=== PATIENT | male | born 1940 | race Caucasian/White ===

== ENCOUNTER 2022-10-13 10:50 | Emergency (ER) | payer MEDICARE, SELFPAY ==
[2022-10-13 11:04] VITALS: BP 171/69; PULSE 65; RESP 18; TEMP 36.6; O2SAT 98; BMI 26.9
--- NOTE | 2022-10-13 11:15 | CT_ITS ---
The [address] [address] Patient Name: BOB FRY MRN: [id number] date: 1940 Sex: M Assigned Patient Location: ER Current Patient Location: ER Accession/Order Number: [id number] Exam Date: 10/13/2022 11:20 Report Date: 10/13/2022 11:41 At the request of: STEVEN SEO Procedure: CT head/brain wo con EXAM: CT head/brain wo con HISTORY: injury head and neck pain. History of fall. COMPARISON: CT head 11/07/2021. TECHNIQUE: Axial soft tissue and bone windows through the calvarium with coronal and sagittal reformats.CT dose reduction technique was used including Automated Exposure Control. Findings: No depressed or calvarial fracture. The paranasal sinuses and mastoid air cells are well aerated. No air-fluid levels. No extra-axial fluid collection. No intra-axial or extra-axial bleed. No mass effect or midline shift. Small scattered lacunar infarcts. Otherwise, the remainder of the villeda-white matter differentiation is preserved. There are supratentorial deep white matter low attenuation lesions which are nonspecific but commonly attributed to chronic small vessel ischemic disease. The brain parenchymal volume is reduced and there is ex vacuo dilatation of the ventricles. The basal cisterns are patent. The craniovertebral junction is unremarkable. CT/CT head/brain wo con IMPRESSION: 1. No depressed or calvarial fracture. 2. No acute intracranial bleed. 3. Senescent changes. Electronically authenticated by: MIGEL GRAHAM Date: 10/13/2022 11:41
--- NOTE | 2022-10-13 11:16 | CT_ITS ---
The [address] [address] Patient Name: BOB FRY MRN: [id number] date: 1940 Sex: M Assigned Patient Location: ER Current Patient Location: ER Accession/Order Number: [id number] Exam Date: 10/13/2022 11:20 Report Date: 10/13/2022 11:50 At the request of: STEVEN SEO Procedure: CT cervical spine wo con PROCEDURE: CT cervical spine wo con COMPARISON: None. HISTORY: injury TECHNIQUE: Axial, Coronal, and Sagittal CT images obtained without IV contrast. Dose reduction techniques were achieved by using automated exposure control and/or adjustment of mA and/or kV according to patient size and/or use of iterative reconstruction technique. FINDINGS: PARASPINAL AREA: Normal with no visible mass. DISCS: Fusion C3-C6 BONES: 2 mm retrolisthesis of C3 in relation to C2-C4. Partial loss of lordosis. Anterior fusion C3-C6 with no mechanical failure. Moderate degenerative spondylosis and facet osteoarthropathy OTHER: Negative. CT/CT cervical spine wo con IMPRESSION: No acute abnormality Electronically authenticated by: DENNY MCCOY Date: 10/13/2022 11:50
--- NOTE | 2022-10-13 11:19 | ECG_ITS ---
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
--- NOTE | 2022-10-13 12:30 | XR_ITS ---
The [address] [address] Patient Name: BOB FRY MRN: [id number] date: 1940 Sex: M Assigned Patient Location: ER Current Patient Location: ER Accession/Order Number: [id number] Exam Date: 10/13/2022 12:58 Report Date: 10/13/2022 13:25 At the request of: STEVEN SEO Procedure: XR chest 2V EXAM: XR chest 2V HISTORY: sob COMPARISON: None. TECHNIQUE: PA and lateral views of the chest. FINDINGS: The cardiomediastinal silhouette is normal. No focal consolidation is identified. There is no pneumothorax. No pleural effusion is noted. The osseous structures are intact. XR/XR chest 2V IMPRESSION: No acute cardiopulmonary process. Electronically authenticated by: CRUZ GARNETT Date: 10/13/2022 13:25
[2022-10-13] MEDS: 0.9 % SODIUM CHLORIDE 1,000 ML 1000 ML IV (12:44)
--- NOTE | 2022-10-13 12:51 | ED.GENADUL1 ---
HPI - General Adult General Chief complaint: Head Injury Stated complaint: FELL/HIT HEAD/HAS DEMENTIA Time Seen by Provider: 10/13/22 11:59 Source: family Mode of arrival: walk-in Limitations: no limitations History of Present Illness HPI narrative: Patient is a 82-year-old male who is presenting to the Emergency Room with chief complaint of 2 near syncopal episodes, falling down, hitting his head on the 2nd time. Patient was a home with his . Patient is on Plavix. Patient states that he does intermittently fall or lose his balance. For unknown reason, patient hit his head on the 2nd time that he fell. Patient has no headache. Patient has stiff shoulders, no neck pain. He has no chest pain, shortness of breath, nausea, vomiting, or any acute complaints. Patient is here with his . Patient does fall frequently or lose his balance intermittently at home for no reason. He did not have a mechanical fall today. No other acute complaints. No strokelike signs or symptoms. . All systems are negative except as noted/marked. All systems reviewed and otherwise negative. . Nurses note and vital signs reviewed and patient is not hypoxic. General: The patient appears well and in no apparent distress. Patient is resting comfortably on cart. Patient is not toxic, lethargic, or listless Skin: Warm, dry, no pallor noted. There is no rash noted. No petechiae, purpura. Head: Normocephalic, atraumatic, The scalp hematoma, patient has no midline or paracervical tenderness to palpation. Full range of motion of cervical spinal no difficulty. Eye: Normal conjunctiva, no drainage, EOMI. PERRL Ears, Nose, Mouth, and Throat: oral mucosa is Slightly dry. Nares patent. Mouth without vesicles. Cardiovascular: Regular Rate and Rhythm, no murmur, gallop, rub Respiratory: Patient is in no distress, no accessory muscle use, lungs are clear to auscultation, no wheezing, rales or rhonchi Back: non-tender, no CVA tenderness bilaterally to percussion. No CT LS midline pain. GI: soft, no tenderness to palpation, no masses appreciated. No rebound, guarding, or rigidity noted. No flank pain bilateral, No distention Musculoskeletal: Patient has full range of motion of all of the extremities, no motor, sensory, or focal neurological deficits Neurological: A&O x3, normal speech;NIH 0 Psychiatric: Cooperative Related Data Home Medications Medication Instructions Recorded Confirmed atorvastatin 80 mg tablet 80 mg PO QDAY 10/13/22 10/13/22 donepezil 10 mg tablet 10 mg PO QDAY 10/13/22 10/13/22 insulin glargine 100 unit/mL (3 1 unit subcut QID 10/13/22 10/13/22 mL) subcutaneous pen (Lantus Solostar U-100 Insulin) lisinopril 10 mg tablet 10 mg PO QDAY 10/13/22 10/13/22 metformin 500 mg tablet,extended 500 mg PO QDAY 10/13/22 10/13/22 release 24 hr mirtazapine 15 mg tablet 15 mg PO QDAY 10/13/22 10/13/22 omeprazole 40 mg capsule,delayed 40 mg PO QDAY 10/13/22 10/13/22 release ranolazine 500 mg tablet,extended 500 mg PO Q12H 10/13/22 10/13/22 release,12 hr Allergies Allergy/AdvReac Type Severity Reaction Status Date / Time No Known Drug Allergies Allergy Verified 10/13/22 11:01 [facility] Social History Smoking status: Current every day smoker Exam Constitutional Vital Signs, click to edit/add: Last Vital Signs Temp 97.8 F 10/13/22 11:04 Pulse 65 10/13/22 11:04 Resp 18 10/13/22 11:04 BP 171/69 H 10/13/22 11:04 Pulse Ox 98 10/13/22 11:04 O2 Del Method Room Air 10/13/22 11:04 Course Vital Signs Vital signs: Vital Signs Temperature 97.8 F 10/13/22 11:04 Pulse Rate 65 10/13/22 11:04 Respiratory Rate 18 10/13/22 11:04 Blood Pressure 171/69 H 10/13/22 11:04 Pulse Oximetry 98 10/13/22 11:04 Oxygen Delivery Method Room Air 10/13/22 11:04 Temperature 97.8 F 10/13/22 11:04 Pulse Rate 65 10/13/22 11:04 Respiratory Rate 18 10/13/22 11:04 Blood Pressure 171/69 H 10/13/22 11:04 Pulse Oximetry 98 10/13/22 11:04 Oxygen Delivery Method Room Air 10/13/22 11:04 Medical Decision Making MDM Narrative Medical decision making narrative: Patient was given 1 L of IV fluid. Patient chest x-ray, EKG, lab work shows no acute findings. Patient had a CT of the brain and cervical spine that showed no acute findings well. Please see the official reports. Patient will follow-up with PCP as needed. Lab Data Lab results reviewed: Yes I reviewed the patient's lab results Labs: Lab Results 10/13/22 Range/Units 12:48 WBC 10.8 (4.0-11.0) 10^3/uL RBC 4.22 L (4.70-6.10) 10^6/uL Hgb 12.8 L (14.0-18.0) g/dL Hct 38.1 L (42.0-54.0) % MCV 90.3 (80.0-94.0) fL MCH 30.3 (25.9-34.0) pg MCHC 33.6 (29.9-35.2) g/dL RDW 13.6 (11.0-15.0) % Plt Count 233 (150-450) 10^3/uL MPV 10.9 (9.5-13.5) fL Neut % (Auto) 78.6 H (43.0-75.0) % Lymph % (Auto) 11.0 L (20.5-60.0) % [place] % (Auto) 6.8 (1.7-12.0) % Eos % (Auto) 2.9 (0.9-7.0) % Baso % (Auto) 0.3 (0.2-2.0) % Neut # (Auto) 8.5 H (1.4-6.5) 10^3/uL Lymph # (Auto) 1.2 (1.2-3.8) 10^3/uL [place] # (Auto) 0.7 (0.3-0.8) 10^3/uL Eos # (Auto) 0.3 (0.0-0.7) 10^3/uL Baso # (Auto) 0.0 (0.0-0.1) 10^3/uL Abs Immat Gran (auto) 0.04 H (0.00-0.03) 10^3/uL Imm/Tot Granulo (auto) 0.4 (0.0-0.5) % Sodium 138 (136-145) mmol/L Potassium 4.3 (3.5-5.1) mmol/L Chloride 104 (98-107) mmol/L Carbon Dioxide 24.0 (21.0-32.0) mmol/L Anion Gap 14.3 BUN 20.0 H (7.0-18.0) mg/dL Creatinine 1.29 (0.70-1.30) mg/dL Est GFR ( Amer) >60 (>=60) Est GFR (Non-Af Amer) 53 L (>=60) BUN/Creatinine Ratio 15.5 Glucose 259 H (74-106) mg/dL Calcium 8.8 (8.5-10.1) mg/dL Troponin I High Sens 10.5 (4.0-76.1) pg/mL ECG Data Attestation: I personally reviewed and interpreted this ECG as follows: Interpretation: EKG interpretation. Normal sinus rhythm at 66 beats a minute. Left axis deviation. No acute ST elevation, no acute ectopy. QTC of 413. Discharge Plan Discharge Chief Complaint: Head Injury Clinical Impression: CHI (closed head injury), Near syncope Patient Disposition: Home, Self-Care Prescriptions / Home Meds: No Action atorvastatin 80 mg tablet 80 mg PO QDAY donepezil 10 mg tablet 10 mg PO QDAY insulin glargine [Lantus Solostar U-100 Insulin] 100 unit/mL (3 mL) insulin pen 1 unit SUBCUT QID lisinopril 10 mg tablet 10 mg PO QDAY metformin 500 mg tablet extended release 24 hr 500 mg PO QDAY mirtazapine 15 mg tablet 15 mg PO QDAY omeprazole 40 mg capsule,delayed release(DR/EC) 40 mg PO QDAY ranolazine 500 mg tablet extended release 12 hr 500 mg PO Q12H Instructions: Head Injury (ED), Near Syncope (ED) Stand Alone Forms: Portal Instructions Referrals: CECY CLARKE [Primary Care Provider] - 1 week Discharge Date/Time: 10/13/22 14:27
[2022-10-13 12:57] LABS: Basophils Percent Auto 0.3 % (0.2-2.0); Eosinophils Absolute Auto 0.3 10^3/uL (0.0-0.7); Eosinophils Percent Auto 2.9 % (0.9-7.0); Hematocrit 38.1 % (42.0-54.0); Hemoglobin 12.8 g/dL (14.0-18.0); Immature Granulocytes Abs Auto 0.04 10^3/uL (0.00-0.03); Immature Granulocytes Pct Auto 0.4 % (0.0-0.5); Lymphocytes Absolute Auto 1.2 10^3/uL (1.2-3.8); Mean Corpuscular HGB Conc 33.6 g/dL (29.9-35.2); Mean Corpuscular Hemoglobin 30.3 pg (25.9-34.0); Mean Corpuscular Volume 90.3 fL (80.0-94.0); Mean Platelet Volume 10.9 fL (9.5-13.5); Monocytes Absolute Auto 0.7 10^3/uL (0.3-0.8); Monocytes Percent Auto 6.8 % (1.7-12.0); Neutrophils Absolute Auto 8.5 10^3/uL (1.4-6.5); Neutrophils Percent Auto 78.6 % (43.0-75.0); Platelet Count 233 10^3/uL (150-450); Red Blood Count 4.22 10^6/uL (4.70-6.10); Red Cell Distribution Width 13.6 % (11.0-15.0); White Blood Count 10.8 10^3/uL (4.0-11.0)
[2022-10-13 13:14] LABS: Anion Gap 14.3; BUN Creatinine Ratio 15.5; Calcium 8.8 mg/dL (8.5-10.1); Chloride 104 mmol/L (98-107); Estimated GFR (African America >60 (>=60); Estimated GFR (Non-African Ame 53 (>=60); Glucose 259 mg/dL (74-106); Potassium 4.3 mmol/L (3.5-5.1); Sodium 138 mmol/L (136-145); Troponin I High Sensitivity 10.5 pg/mL (4.0-76.1)
[2022-10-13 17:04] LABS: Bilirubin Urine NEGATIVE (NEGATIVE); Blood Urine NEGATIVE (NEGATIVE); Clarity Urine CLEAR (CLEAR); Color Urine LT. YELLOW (YELLOW); Glucose Urine UA 100 mg/dL (NEGATIVE); Ketones Urine NEGATIVE (NEGATIVE); Leukocyte Esterase Urine NEGATIVE (NEGATIVE); Nitrite Urine NEGATIVE (NEGATIVE); Protein Urine NEGATIVE (NEG/TRACE); Urobilinogen Urine 0.2 EU/dL (0.2-1.0)
[2022-10-13 17:07] LABS: Urine Microscopic Indicated ALREADY ORDERED
[2022-10-13 17:18] LABS: Bacteria Urine NONE SEEN #/HPF (NONE SEEN); Cast Seen? NONE SEEN #/LPF (NONE SEEN); Crystals Seen? None Seen #/HPF (None Seen); Mucus Urine NONE SEEN (NONE SEEN); RBC Urine 0-2 #/HPF (0-2); Squamous Epithelial Cell Urine NONE SEEN #/LPF (NONE/RARE); Urine Culture Indicated ALREADY ORDERED; WBC Urine NONE SEEN #/HPF (NONE SEEN)
--- NOTE | 2022-10-17 12:51 | PC.NURSE ---
10/17/22 1251 pt being tx in er today with atb dr chun reviewed c+s of urine. S Albert MANZO
--- NOTE | 2022-10-20 10:07 | PC.NURSE ---
10/20/22 1007 c+s from urine on 10/13/22 pt pcp called and message left unable to contact pt or phone numbers no answer disconnected or unable to leave message. dr chun ordered for keflex to stop and start levaquin 750 mg po daily times 7 days. operation supervisor Gianna MANZO made aware of unable to contact pt Gianna attempted no contact. message left by this pattern chart writer to dr russell office.
== END 2022-10-13 14:27 | disposition home or self-care (01) ==
PROVIDERS: Emergency Provider Emergency Medicine; PCP Family Medicine
DX: S09.8XXA Other specified injuries of head, initial encounter (principal); R55 Syncope and collapse; Z79.02 Long term (current) use of antithrombotics/antiplatelets; Z79.899 Other long term (current) drug therapy; Z79.4 Long term (current) use of insulin; Z79.84 Long term (current) use of oral hypoglycemic drugs; F17.210 Nicotine dependence, cigarettes, uncomplicated; W19.XXXA Unspecified fall, initial encounter
CPT/HCPCS: 36415; 70450; 71046; 72125; 80048; 81001; 81003; 84484; 85025; 87086; 87150; 87186; 93005; 99285

== ENCOUNTER 2022-10-17 11:35 | Emergency (ER) | payer MEDICARE, SELFPAY ==
[2022-10-17] VITALS (15 sets, daily range): BP systolic 163–201; BP diastolic 67–94; PULSE 73–88; RESP 11–32; TEMP 36.6; O2SAT 98–100; BMI 26.6
--- NOTE | 2022-10-17 11:40 | ECG_ITS ---
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
--- NOTE | 2022-10-17 12:13 | XR_ITS ---
The [address] [address] Patient Name: BOB FRY MRN: [id number] date: 1940 Sex: M Assigned Patient Location: ER Current Patient Location: ER Accession/Order Number: [id number] Exam Date: 10/17/2022 12:50 Report Date: 10/17/2022 13:11 At the request of: STEVEN SEO Procedure: XR acute abdomen series EXAMINATION: XR acute abdomen series HISTORY: abd pain COMPARISON: No relevant comparison available. FINDINGS: LUNGS: No infiltrate, pneumothorax, or pleural effusion. MEDIASTINUM: No abnormal widening. Prior sternotomy. BOWEL GAS PATTERN: Non-obstructed. No abnormal dilation or suspicious fluid levels. FREE AIR: None. Air beneath left hemidiaphragm is within stomach. CALCIFICATIONS: None significant. BONES: Posterior mechanical fusion L1-L5. Posterior decompression of L3 and L4. OTHER: Negative. XR/XR acute abdomen series IMPRESSION: 1. No acute cardiopulmonary process. 2. No acute abdominal findings. Moderate amount of stool within distal colon. Electronically authenticated by: BLANCA PUCKETT Date: 10/17/2022 13:11
--- NOTE | 2022-10-17 12:16 | ED_ITS ---
HPI - General Adult General Chief complaint: Chest Pain Stated complaint: CHEST PAIN Time Seen by Provider: 10/17/22 11:41 Source: patient Mode of arrival: ambulance History of Present Illness HPI narrative: Patient is a 82-year-old male who is presenting to the Emergency Room with chief complaint of one episode of vomiting, and midepigastric pain after he was eating eggs at a restaurant. Patient was already seen and evaluated this morning at [facility] Room very early this morning around 4:00 this morning. patient presented this morning with sharp central chest pain, stating it started last night. He had one nitroglycerin in the ambulance, he had aspirin. Patient had normal EKG, blood pressure is slightly elevated, patient had lab work that showed no acute abnormality. Chest x-ray was within normal limits. Patient had a d-dimer that was elevated, but with age adjustment was normal. patient is presenting by ambulance for midepigastric pain. Patient said he vomited once. Patient stated that he noticed black stool today, does not have a history of black stool or gastrointestinal bleed. Patient takes no blood thinners. Patient states his pain is midsternal, midepigastric. Similar to what it was earlier today. Patient does not feel lightheaded or dizzy. Patient states she has mild diffuse abdominal pain. No constipation. Patient stated he change his adult diaper prior to arrival, he did have a bowel movement that he did notice black stool. Patient has no history of gastrointestinal bleed. No other acute complaints. . All systems are negative except as noted/marked. All systems reviewed and otherwise negative. . Nurses note and vital signs reviewed and patient is not hypoxic. General: The patient appears well and in no apparent distress. Patient is resting comfortably on cart. Patient is not toxic, lethargic, or listless Skin: Warm, dry, no pallor noted. There is no rash noted. No petechiae, purpura. Head: Normocephalic, atraumatic Eye: Normal conjunctiva, no drainage, EOMI. PERRL Ears, Nose, Mouth, and Throat: oral mucosa is slightly dry. Nares patent. poor dentition, no acute signs of infection. Cardiovascular: Regular Rate and Rhythm, no murmur, gallop, rub Respiratory: Patient is in no distress, no accessory muscle use, lungs are clear to auscultation, no wheezing, rales or rhonchi Back: non-tender, no CVA tenderness bilaterally to percussion. No CT LS midline pain GI: soft, no tenderness to palpation, no masses appreciated. No rebound, guarding, or rigidity noted. No flank pain bilateral, No distention. rectal exam: Agnes MANZO was at bedside the entire time, Dark brown stool, Hemoccult was sent. Musculoskeletal: Patient has full range of motion of all of the extremities, no motor, sensory, or focal neurological deficits Neurological: A&O x3, normal speech Psychiatric: Cooperative Related Data Home Medications Medication Instructions Recorded Confirmed atorvastatin 80 mg tablet 80 mg PO QDAY 10/13/22 10/13/22 donepezil 10 mg tablet 10 mg PO QDAY 10/13/22 10/13/22 insulin glargine 100 unit/mL (3 1 unit subcut QID 10/13/22 10/13/22 mL) subcutaneous pen (Lantus Solostar U-100 Insulin) lisinopril 10 mg tablet 10 mg PO QDAY 10/13/22 10/13/22 metformin 500 mg tablet,extended 500 mg PO QDAY 10/13/22 10/13/22 release 24 hr mirtazapine 15 mg tablet 15 mg PO QDAY 10/13/22 10/13/22 omeprazole 40 mg capsule,delayed 40 mg PO QDAY 10/13/22 10/13/22 release ranolazine 500 mg tablet,extended 500 mg PO Q12H 10/13/22 10/13/22 release,12 hr Previous Rx's Medication Instructions Recorded cephalexin 500 mg capsule 500 mg PO Q12H 7 days #14 caps 10/17/22 ondansetron 4 mg disintegrating 4 mg PO Q4H PRN nausea and 10/17/22 tablet vomiting 3 days #6 tabs Allergies Allergy/AdvReac Type Severity Reaction Status Date / Time No Known Drug Allergies Allergy Verified 10/13/22 11:01 PFSH PFS Social History Smoking status: Current every day smoker Exam Constitutional Vital Signs, click to edit/add: Last Vital Signs Temp 97.8 F 10/17/22 11:37 Pulse 79 10/17/22 13:53 Resp 17 10/17/22 13:53 BP 166/67 H 10/17/22 13:53 Pulse Ox 99 10/17/22 13:53 O2 Del Method Room Air 10/17/22 11:37 Course Vital Signs Vital signs: Vital Signs Temperature 97.8 F 10/17/22 11:37 Pulse Rate 85 10/17/22 11:37 Respiratory Rate 20 10/17/22 11:37 Blood Pressure 188/88 H 10/17/22 11:37 Pulse Oximetry 98 10/17/22 11:37 Oxygen Delivery Method Room Air 10/17/22 11:37 Temperature 97.8 F 10/17/22 11:37 Pulse Rate 79 10/17/22 13:53 Respiratory Rate 17 10/17/22 13:53 Blood Pressure 166/67 H 10/17/22 13:53 Pulse Oximetry 99 10/17/22 13:53 Oxygen Delivery Method Room Air 10/17/22 11:37 Medical Decision Making MDM Narrative Medical decision making narrative: patient's lab work showed minimal elevation of white blood cells, lactic acid was elevated as well. Patient was given additional IV fluids. Patient had mild midepigastric tenderness palpation initially, and no reproducible parasternal tenderness palpation. Patient EKG, troponin were negative. Patient felt better after Pepcid and IV fluids were given. Patient does take omeprazole daily. Patient has never had EGD, and is been a long, long time since he had a colonoscopy. Patient was educated bedside and on discharge papers about checking his stool every bowel movement to make sure he is not having black stools daily. Patient mentioned that he did notice black stool yesterday and today. Patient was told this could be an upper gastrointestinal bleed. Patient will continue taking antacid medication daily, check stool daily, follow-up with PCP in Dr. Barr was referred for additional outpatient testing or scopes if needed. Patient was very thankful for help, asymptomatic at discharge. Reexamination of abdomen at discharge is a soft, nontender, no guarding, rebound, rigidity. No flank pain. No midepigastric tenderness palpation. No peritoneal signs Lab Data Lab results reviewed: Yes I reviewed the patient's lab results Labs: Lab Results 10/17/22 10/17/22 Range/Units 12:05 12:30 WBC 13.2 H (4.0-11.0) 10^3/uL RBC 4.12 L (4.70-6.10) 10^6/uL Hgb 12.3 L (14.0-18.0) g/dL Hct 36.7 L (42.0-54.0) % MCV 89.1 (80.0-94.0) fL MCH 29.9 (25.9-34.0) pg MCHC 33.5 (29.9-35.2) g/dL RDW 13.2 (11.0-15.0) % Plt Count 291 (150-450) 10^3/uL MPV 10.7 (9.5-13.5) fL Neut % (Auto) 87.6 H (43.0-75.0) % Lymph % (Auto) 6.4 L (20.5-60.0) % [place] % (Auto) 4.9 (1.7-12.0) % Eos % (Auto) 0.5 L (0.9-7.0) % Baso % (Auto) 0.2 (0.2-2.0) % Neut # (Auto) 11.6 H (1.4-6.5) 10^3/uL Lymph # (Auto) 0.9 L (1.2-3.8) 10^3/uL [place] # (Auto) 0.7 (0.3-0.8) 10^3/uL Eos # (Auto) 0.1 (0.0-0.7) 10^3/uL Baso # (Auto) 0.0 (0.0-0.1) 10^3/uL Abs Immat Gran (auto) 0.05 H (0.00-0.03) 10^3/uL Imm/Tot Granulo (auto) 0.4 (0.0-0.5) % Sodium 134 L (136-145) mmol/L Potassium 4.2 (3.5-5.1) mmol/L Chloride 97 L (98-107) mmol/L Carbon Dioxide 27.8 (21.0-32.0) mmol/L Anion Gap 13.4 BUN 29.0 H (7.0-18.0) mg/dL Creatinine 1.21 (0.70-1.30) mg/dL Est GFR ( Amer) >60 (>=60) Est GFR (Non-Af Amer) 57 L (>=60) BUN/Creatinine Ratio 24.0 Glucose 373 H (74-106) mg/dL Lactate 2.5 H* (0.4-2.0) mmol/L Calcium 8.8 (8.5-10.1) mg/dL Total Bilirubin 0.7 (0.2-1.0) mg/dL AST 20 (15-37) U/L ALT 22 (16-63) U/L Alkaline Phosphatase 82 (46-116) U/L Troponin I High Sens 20.6 (4.0-76.1) pg/mL Total Protein 6.9 (6.4-8.2) g/dL Albumin 3.7 (3.4-5.0) g/dL Globulin 3.2 g/dL Albumin/Globulin Ratio 1.2 Lipase 92.0 (73.0-393.0) U/L Stool Occult Blood Negative ECG Data Attestation: I personally reviewed and interpreted this ECG as follows: Interpretation: EKG interpretation. Normal sinus rhythm 86 beats a minute. Left axis deviation.no acute ST elevation, no acute ectopy. QTC of 405. Discharge Plan Discharge Chief Complaint: Chest Pain Clinical Impression: Gastritis, Acute UTI, Nausea & vomiting, Dehydration Patient Disposition: Home, Self-Care Condition: Good Prescriptions / Home Meds: New ondansetron 4 mg tablet,disintegrating 4 mg PO Q4H PRN (Reason: nausea and vomiting) 3 Days Qty: 6 0RF cephalexin 500 mg capsule 500 mg PO Q12H 7 Days Qty: 14 0RF No Action atorvastatin 80 mg tablet 80 mg PO QDAY donepezil 10 mg tablet 10 mg PO QDAY insulin glargine [Lantus Solostar U-100 Insulin] 100 unit/mL (3 mL) insulin pen 1 unit SUBCUT QID lisinopril 10 mg tablet 10 mg PO QDAY metformin 500 mg tablet extended release 24 hr 500 mg PO QDAY mirtazapine 15 mg tablet 15 mg PO QDAY omeprazole 40 mg capsule,delayed release(DR/EC) 40 mg PO QDAY ranolazine 500 mg tablet extended release 12 hr 500 mg PO Q12H Instructions: Gastritis (ED), Dehydration (ED), Urinary Tract Infection in Men (ED), Acute Nausea and Vomiting (ED) Additional Instructions: Make sure that you're taking omeprazole present all tablet daily. Dr. Barr has been referred to perform EGD or colonoscopy if needed. Start looking at your daily bowel movements and stool to see of its black color every time as discussed at bedside. Stand Alone Forms: Portal Instructions Referrals: Damian Alfredo MD [Physician] - 1 week CECY CLARKE [Primary Care Provider] - 1 week
[2022-10-17] MEDS: ONDANSETRON PF 4 MG/2 ML VIAL IV (12:32)
[2022-10-17] MEDS: FAMOTIDINE/PF 20 MG/2 ML VIAL IV (12:32)
[2022-10-17] MEDS: 0.9 % SODIUM CHLORIDE 1,000 ML 1000 ML IV (12:36)
[2022-10-17] MEDS: lidocaine HCL 15 ML, MAG HYDROX/ALUMINUM HYD/SIMETH 30 ML, HYOSCYAMINE SULFATE 0.25 MG PO (12:36)
[2022-10-17 12:56] LABS: Basophils Percent Auto 0.2 % (0.2-2.0); Eosinophils Absolute Auto 0.1 10^3/uL (0.0-0.7); Eosinophils Percent Auto 0.5 % (0.9-7.0); Hematocrit 36.7 % (42.0-54.0); Hemoglobin 12.3 g/dL (14.0-18.0); Immature Granulocytes Abs Auto 0.05 10^3/uL (0.00-0.03); Immature Granulocytes Pct Auto 0.4 % (0.0-0.5); Lymphocytes Absolute Auto 0.9 10^3/uL (1.2-3.8); Lymphocytes Percent Auto 6.4 % (20.5-60.0); Mean Corpuscular HGB Conc 33.5 g/dL (29.9-35.2); Mean Corpuscular Hemoglobin 29.9 pg (25.9-34.0); Mean Corpuscular Volume 89.1 fL (80.0-94.0); Mean Platelet Volume 10.7 fL (9.5-13.5); Monocytes Absolute Auto 0.7 10^3/uL (0.3-0.8); Monocytes Percent Auto 4.9 % (1.7-12.0); Neutrophils Absolute Auto 11.6 10^3/uL (1.4-6.5); Neutrophils Percent Auto 87.6 % (43.0-75.0); Platelet Count 291 10^3/uL (150-450); Red Blood Count 4.12 10^6/uL (4.70-6.10); Red Cell Distribution Width 13.2 % (11.0-15.0); White Blood Count 13.2 10^3/uL (4.0-11.0)
[2022-10-17] MEDS: CEFTRIAXONE 1,000 MG in 0.9 % SODIUM CHLORIDE 50 ML 100 MG IV (13:04)
[2022-10-17 13:15] LABS: Alanine Aminotransferase 22 U/L (16-63); Albumin Globulin Ratio 1.2; Albumin Level 3.7 g/dL (3.4-5.0); Alkaline Phosphatase 82 U/L (46-116); Anion Gap 13.4; Aspartate Amino Transferase 20 U/L (15-37); Bilirubin Total 0.7 mg/dL (0.2-1.0); Calcium 8.8 mg/dL (8.5-10.1); Carbon Dioxide 27.8 mmol/L (21.0-32.0); Chloride 97 mmol/L (98-107); Estimated GFR (African America >60 (>=60); Estimated GFR (Non-African Ame 57 (>=60); Globulin 3.2 g/dL; Glucose 373 mg/dL (74-106); Potassium 4.2 mmol/L (3.5-5.1); Sodium 134 mmol/L (136-145); Total Protein 6.9 g/dL (6.4-8.2); Troponin I High Sensitivity 20.6 pg/mL (4.0-76.1)
[2022-10-17 13:26] LABS: Lactate/Lactic Acid 2.5 mmol/L (0.4-2.0)
[2022-10-17] MEDS: LISINOPRIL 10 MG TABLET PO (13:33)
[2022-10-17 14:03] LABS: Occult Blood Negative
== END 2022-10-17 14:15 | disposition home or self-care (01) ==
PROVIDERS: Emergency Provider Emergency Medicine; PCP Family Medicine
DX: N39.0 Urinary tract infection, site not specified (principal); R11.2 Nausea with vomiting, unspecified; K29.70 Gastritis, unspecified, without bleeding; E86.0 Dehydration; R19.5 Other fecal abnormalities; F17.210 Nicotine dependence, cigarettes, uncomplicated; Z79.899 Other long term (current) drug therapy; Z79.84 Long term (current) use of oral hypoglycemic drugs; Z79.4 Long term (current) use of insulin
CPT/HCPCS: 36415; 74022; 80053; 83605; 83690; 84484; 85025; 93005; 96374; 96375; 99285; G0328

== ENCOUNTER 2022-10-19 16:26 | Emergency (ER) | payer MEDICARE, SELFPAY ==
[2022-10-19 16:28] VITALS: BP 126/56; PULSE 77; RESP 18; TEMP 36.8; O2SAT 98; BMI 24.2
--- NOTE | 2022-10-19 16:28 | ED.FALL1 ---
HPI - Fall General Chief Complaint: Fall Stated Complaint: FALL Time Seen by Provider: 10/19/22 16:28 History of Present Illness HPI Narrative: Patient presents to emergency department via EMS with a complaint of a fall. Patient states he fell yesterday. Today he has right leg over the distal femur pain and neck soreness. Patient states he did not hit his head with the fall. He walked to the ambulance unassisted with a cane. Patient has a history of frequent falls. He denies any nausea, vomiting. He has not taking anything at home for the pain. He denies any paresthesias, or weakness. He states was a mechanical fall denies any syncope. Does not have any other complaints. Related Data Home Medications Medication Instructions Recorded Confirmed atorvastatin 80 mg tablet 80 mg PO QDAY 10/13/22 10/13/22 donepezil 10 mg tablet 10 mg PO QDAY 10/13/22 10/13/22 insulin glargine 100 unit/mL (3 1 unit subcut QID 10/13/22 10/13/22 mL) subcutaneous pen (Lantus Solostar U-100 Insulin) lisinopril 10 mg tablet 10 mg PO QDAY 10/13/22 10/13/22 metformin 500 mg tablet,extended 500 mg PO QDAY 10/13/22 10/13/22 release 24 hr mirtazapine 15 mg tablet 15 mg PO QDAY 10/13/22 10/13/22 omeprazole 40 mg capsule,delayed 40 mg PO QDAY 10/13/22 10/13/22 release ranolazine 500 mg tablet,extended 500 mg PO Q12H 10/13/22 10/13/22 release,12 hr Previous Rx's Medication Instructions Recorded cephalexin 500 mg capsule 500 mg PO Q12H 7 days #14 caps 10/17/22 ondansetron 4 mg disintegrating 4 mg PO Q4H PRN nausea and 10/17/22 tablet vomiting 3 days #6 tabs Allergies Allergy/AdvReac Type Severity Reaction Status Date / Time No Known Drug Allergies Allergy Verified 10/13/22 11:01 Review of Systems ROS Status of ROS 10 or more systems reviewed and unremarkable except as noted in history and below PFSH PFSH Social History Smoking status: Current every day smoker Exam Narrative Exam Narrative: Nurses notes and vital signs reviewed and patient is not hypoxic. General: Nontoxic, Elderly, frail, chronically ill and in no apparent distress. Skin: Warm, dry, no pallor noted. No Rash Head: Normocephalic, atraumatic. Neck: Supple, Is supple patient to the left lateral paraspinals C3-C6. Eye: Pupils are equal, round and EOMI. No scleral icterus. Ears, Nose, Mouth, and Throat: TM clear, no posterior oropharynx erythema or nasal mucosal hypertrophy, uvula is mid-line Oral mucosa is moist Cardiovascular: Regular Rate and Rhythm without murmur, gallop or rub. Respiratory: No accessory muscle use or respiratory distress. Lungs are clear to auscultation, no wheezing, rales or rhonchi Chest Wall: no tenderness Back: No midline thoracic or lumbar vertebral tenderness. No CVA tenderness Musculoskeletal: Tenderness to palpation to the left distal femur anteriorly. There are no step-offs, no ecchymosis, no abrasions, no signs of trauma, infection. normal ROM, no calf or popliteal tenderness, no lower extremity edema/swelling GI: Abdomen is soft, non-distended. Normal bowel sounds. No masses appreciated. No tenderness to palpation. No rebound, guarding, or rigidity noted. Neurological: A&O x4. No cranial nerve dysfunction observed. No truncal ataxia. Moves all extremities. Sensation intact. Psychiatric: Cooperative and interactive. Normal mood and affect. Constitutional Vital Signs, click to edit/add: Last Vital Signs Temp 98 F 10/19/22 18:49 Pulse 64 10/19/22 18:49 Resp 14 10/19/22 18:49 BP 128/60 10/19/22 18:49 Pulse Ox 97 10/19/22 18:49 O2 Del Method Room Air 10/19/22 18:49 Course Vital Signs Vital signs: Vital Signs Temperature 98.2 F 10/19/22 16:28 Pulse Rate 77 10/19/22 16:28 Respiratory Rate 18 10/19/22 16:28 Blood Pressure 126/56 10/19/22 16:28 Pulse Oximetry 98 10/19/22 16:28 Oxygen Delivery Method Room Air 10/19/22 16:28 Temperature 98 F 10/19/22 18:49 Pulse Rate 64 10/19/22 18:49 Respiratory Rate 14 10/19/22 18:49 Blood Pressure 128/60 10/19/22 18:49 Pulse Oximetry 97 07/27/23 18:49 Oxygen Delivery Method Room Air 10/19/22 18:49 MDM - Fall MDM Narrative Medical decision making narrative: Femur x-ray and CT of the C-spine were done and are unremarkable. Patient was given analgesics in the emergency department. Patient requested food was not having any problems. At this time the patient is without objective evidence of an acute process requiring hospitalization or inpatient management. The patient has remained hemodynamically stable. No additional indication for emergent studies at this time. I answered all questions. Discussed discharge instructions including standard anticipatory guidance and what should prompt a return to the emergency department, including if they get worse are not getting better or develops any new or concerning symptoms. I've given them specific time frame in which to follow-up, and who to follow-up with. The patient demonstrates understanding. Patient is nontoxic and stable for discharge with outpatient follow-up. This note was created with the assistance of a speech recognition program. Although the intention is to generate documents that actually reflects the content of the visit, no guarantees can be provided that every mistake has been identified and corrected by editing. Discharge Plan Discharge Chief Complaint: Fall Clinical Impression: Neck arthralgia, Leg pain, right Patient Disposition: Home, Self-Care Time of Disposition Decision: 18:11 Condition: Good Mode of Transportation: Private Vehicle Prescriptions / Home Meds: No Action atorvastatin 80 mg tablet 80 mg PO QDAY donepezil 10 mg tablet 10 mg PO QDAY insulin glargine [Lantus Solostar U-100 Insulin] 100 unit/mL (3 mL) insulin pen 1 unit SUBCUT QID lisinopril 10 mg tablet 10 mg PO QDAY metformin 500 mg tablet extended release 24 hr 500 mg PO QDAY mirtazapine 15 mg tablet 15 mg PO QDAY omeprazole 40 mg capsule,delayed release(DR/EC) 40 mg PO QDAY ranolazine 500 mg tablet extended release 12 hr 500 mg PO Q12H ondansetron 4 mg tablet,disintegrating 4 mg PO Q4H PRN (Reason: nausea and vomiting) 3 Days Qty: 6 0RF cephalexin 500 mg capsule 500 mg PO Q12H 7 Days Qty: 14 0RF Instructions: Fall Prevention for Older Adults (ED), Leg Pain (ED), Neck Pain (ED) Stand Alone Forms: Portal Instructions Referrals: CECY CLARKE [Primary Care Provider] - 1 week Discharge Date/Time: 10/19/22 19:05
--- NOTE | 2022-10-19 16:41 | XR_ITS ---
The [address] [address] Patient Name: BOB FRY MRN: [id number] date: 1940 Sex: M Assigned Patient Location: ED.MAIN Current Patient Location: ER Accession/Order Number: [id number] Exam Date: 10/19/2022 17:15 Report Date: 10/19/2022 17:39 At the request of: PHIL GOMEZ Procedure: XR femur RT 2V EXAM: XR femur RT 2V HISTORY: Pain following fall COMPARISON: None. TECHNIQUE: 4 views FINDINGS: No osseous lesion, fracture, dislocation or subluxation. The right hip joints and sacroiliac joints are unremarkable for patient's age. The right knee is normal. No visualized effusion. No visualized soft tissue edema. Atherosclerosis of the vascular structures. XR/XR femur RT 2V IMPRESSION: No visualized abnormality. Electronically authenticated by: DENNY MORELOS Date: 10/19/2022 17:39
--- NOTE | 2022-10-19 16:44 | CT_ITS ---
[address] [address] Patient Name: BOB FRY MRN: [id number] date: 1940 Sex: M Assigned Patient Location: ED.MAIN Current Patient Location: ED.MAIN Accession/Order Number: [id number] Exam Date: 10/19/2022 16:58 Report Date: 10/19/2022 17:59 At the request of: PHIL GOMEZ Procedure: CT cervical spine wo con EXAM: CT cervical spine wo con HISTORY: Fall COMPARISON: Cervical spine CT 10/13/2022 TECHNIQUE: Axial CT imaging is performed through the cervical spine. Sagittal and coronal reformatted/reconstructed sequencing was additionally performed. FINDINGS: IMPRESSION: In comparison with prior cervical spine CT performed on 10/13/2022 there is no visualized acute abnormality Electronically authenticated by: DENNY MORELOS Date: 10/19/2022 17:59
[2022-10-19] MEDS: ACETAMINOPHEN 500 MG TABLET 1000 MG PO (16:50)
[2022-10-19 17:25] VITALS: BP 118/48; PULSE 65; RESP 14; TEMP 36.4; O2SAT 98
[2022-10-19 18:49] VITALS: BP 128/60; PULSE 64; RESP 14; TEMP 36.6; O2SAT 97
== END 2022-10-19 19:05 | disposition home or self-care (01) ==
PROVIDERS: Emergency Provider Emergency Medicine; PCP Family Medicine
DX: M79.604 Pain in right leg (principal); M54.2 Cervicalgia; W19.XXXA Unspecified fall, initial encounter; Z79.899 Other long term (current) drug therapy; Z79.4 Long term (current) use of insulin; F17.210 Nicotine dependence, cigarettes, uncomplicated
CPT/HCPCS: 72125; 73552; 99284

== ENCOUNTER 2022-10-30 15:07 | Emergency (ER) | payer MEDICARE, SELFPAY ==
[2022-10-30 15:09] VITALS: BP 174/62; PULSE 72; RESP 18; TEMP 36.6; O2SAT 98; BMI 29.3
--- NOTE | 2022-10-30 15:13 | ED_ITS ---
HPI - General Adult General Stated complaint: CONSTIPATION Time Seen by Provider: 10/30/22 15:08 Source: patient Mode of arrival: ambulance Limitations: no limitations History of Present Illness HPI narrative: 82-year-old male presents for not having a bowel movement. He doesn't know when his last one was. He is a poor historian. He has dementia. He was at home with his . He feels like there is stool in his rectum. Related Data Home Medications Medication Instructions Recorded Confirmed atorvastatin 80 mg tablet 80 mg PO QDAY 10/13/22 10/13/22 donepezil 10 mg tablet 10 mg PO QDAY 10/13/22 10/13/22 insulin glargine 100 unit/mL (3 1 unit subcut QID 10/13/22 10/13/22 mL) subcutaneous pen (Lantus Solostar U-100 Insulin) lisinopril 10 mg tablet 10 mg PO QDAY 10/13/22 10/13/22 metformin 500 mg tablet,extended 500 mg PO QDAY 10/13/22 10/13/22 release 24 hr mirtazapine 15 mg tablet 15 mg PO QDAY 10/13/22 10/13/22 omeprazole 40 mg capsule,delayed 40 mg PO QDAY 10/13/22 10/13/22 release ranolazine 500 mg tablet,extended 500 mg PO Q12H 10/13/22 10/13/22 release,12 hr Previous Rx's Medication Instructions Recorded cephalexin 500 mg capsule 500 mg PO Q12H 7 days #14 caps 10/17/22 ondansetron 4 mg disintegrating 4 mg PO Q4H PRN nausea and 10/17/22 tablet vomiting 3 days #6 tabs Allergies Allergy/AdvReac Type Severity Reaction Status Date / Time No Known Drug Allergies Allergy Verified 10/13/22 11:01 Review of Systems ROS Narrative not obtainable, dementia PFSH PFSH Social History Smoking status: Current every day smoker Exam Narrative Exam Narrative: Nurses note and vital signs reviewed and patient is not hypoxic. General: The patient appears well and in no apparent distress. Patient is resting comfortably on cart. Skin: Warm, dry, no pallor noted. There is no rash noted. Head: Normocephalic, atraumatic Eye: Normal conjunctiva, no drainage Ears, Nose, Mouth, and Throat: oral mucosa is moist. Nares patent. Cardiovascular: Regular Rate and Rhythm Respiratory: Patient is in no distress, no accessory muscle use, lungs are clear to auscultation, no wheezing, rales or rhonchi Back: non-tender GI: soft nontender and nondistended Musculoskeletal: The patient has no evidence of calf tenderness, no pitting edema, symmetrical pulses noted bilaterally Neurological: soft and nontender Psychiatric: Cooperative Constitutional Vital Signs, click to edit/add: Last Vital Signs Temp 97.8 F 10/30/22 15:09 Pulse 72 10/30/22 15:09 Resp 18 10/30/22 15:09 BP 174/62 H 10/30/22 15:09 Pulse Ox 98 10/30/22 15:09 O2 Del Method Room Air 10/30/22 15:09 Course Vital Signs Vital signs: Vital Signs Temperature 97.8 F 10/30/22 15:09 Pulse Rate 72 10/30/22 15:09 Respiratory Rate 18 10/30/22 15:09 Blood Pressure 174/62 H 10/30/22 15:09 Pulse Oximetry 98 10/30/22 15:09 Oxygen Delivery Method Room Air 10/30/22 15:09 Temperature 97.8 F 10/30/22 15:09 Pulse Rate 72 10/30/22 15:09 Respiratory Rate 18 10/30/22 15:09 Blood Pressure 174/62 H 10/30/22 15:09 Pulse Oximetry 98 10/30/22 15:09 Oxygen Delivery Method Room Air 10/30/22 15:09 Medical Decision Making [facility] Narrative Medical decision making narrative: the patient was disimpacted and given an enema and he is feeling much improved. He had a very large bowel movement. Differential Diagnosis Differential Diagnosis: constipation, bowel obstruction Discharge Plan Discharge Clinical Impression: Constipation Patient Disposition: Home, Self-Care Time of Disposition Decision: 15:33 Condition: Good Mode of Transportation: Private Vehicle Prescriptions / Home Meds: No Action atorvastatin 80 mg tablet 80 mg PO QDAY donepezil 10 mg tablet 10 mg PO QDAY insulin glargine [Lantus Solostar U-100 Insulin] 100 unit/mL (3 mL) insulin pen 1 unit SUBCUT QID lisinopril 10 mg tablet 10 mg PO QDAY metformin 500 mg tablet extended release 24 hr 500 mg PO QDAY mirtazapine 15 mg tablet 15 mg PO QDAY omeprazole 40 mg capsule,delayed release(DR/EC) 40 mg PO QDAY ranolazine 500 mg tablet extended release 12 hr 500 mg PO Q12H ondansetron 4 mg tablet,disintegrating 4 mg PO Q4H PRN (Reason: nausea and vomiting) 3 Days Qty: 6 0RF cephalexin 500 mg capsule 500 mg PO Q12H 7 Days Qty: 14 0RF Instructions: Constipation (ED) Stand Alone Forms: Portal Instructions Referrals: CECY CLARKE [Primary Care Provider] - 1 week
[2022-10-30 15:50] VITALS: BP 130/70; PULSE 76; RESP 14; O2SAT 95
== END 2022-10-30 16:11 | disposition home or self-care (01) ==
PROVIDERS: Emergency Provider Emergency Medicine; PCP Family Medicine
DX: K59.00 Constipation, unspecified (principal); F03.90 Unspecified dementia, unspecified severity, without behavioral disturbance, psychotic disturbance, mood disturbance, and anxiety; Z79.899 Other long term (current) drug therapy; Z79.4 Long term (current) use of insulin; F17.210 Nicotine dependence, cigarettes, uncomplicated
CPT/HCPCS: 99283

== ENCOUNTER 2022-11-02 19:06 | Emergency (ER) | payer MEDICARE, SELFPAY ==
[2022-11-02 19:13] VITALS: BP 133/60; PULSE 65; RESP 18; TEMP 36.6; O2SAT 99; BMI 23.5
--- NOTE | 2022-11-02 20:21 | CT_ITS ---
The [address] [address] Patient Name: BOB FRY MRN: [id number] date: 1940 Sex: M Assigned Patient Location: ER Current Patient Location: ER Accession/Order Number: [id number] Exam Date: 11/02/2022 20:27 Report Date: 11/02/2022 21:01 At the request of: CORY HERRING Procedure: CT head/brain wo con EXAM: CT head/brain wo con HISTORY: headache COMPARISON: CT brain 10/13/2022 TECHNIQUE: Axial CT scans through the head were obtained without IV contrast administration. Dose reduction techniques were achieved by using: automated exposure control and/or adjustment of mA and /or kV according to patient size and/or use of iterative reconstruction technique. FINDINGS: There is no evidence of acute intracranial hemorrhage or abnormal extra-axial fluid collection. No mass effect or midline shift is seen. There is no evidence of large acute territorial infarction. There is no hydrocephalus. There are a few tiny lacunar infarcts in bilateral basal ganglia Moderate enlargement of the ventricles and sulci, consistent with age appropriate cerebral atrophy. Patchy areas of low-attenuation are present in supratentorial white matter, likely represents chronic microvascular ischemia. There are severe atherosclerotic calcifications of anterior and posterior circulations. To the limit of CT, the posterior fossa appears unremarkable. No definite acute fracture is identified. Soft tissues are unremarkable. The visualized orbits show no abnormal mass. The visualized paranasal sinuses show no air-fluid level. Mastoid air cells are clear. CT/CT head/brain wo con IMPRESSION: No CT evidence of acute intracranial abnormality. If there is sufficient clinical concern for acute brain parenchymal pathology, consider MRI for further evaluation. 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 Chronic microvascular ischemia, atherosclerosis and involutional changes. Electronically authenticated by: FARIDEH TRINIDAD Date: 11/02/2022 21:01
--- NOTE | 2022-11-02 20:52 | PC.NURSE ---
pt states headache that goes from the back of his head to the front of his head and into bilat shoulders. states this has been going on for a couple of wks and pt was even at his PCP's office and did not report this headache. Pt alert and appropriate, call light in reach
[2022-11-02 20:56] LABS: Bilirubin Urine NEGATIVE (NEGATIVE); Blood Urine NEGATIVE (NEGATIVE); Clarity Urine CLEAR (CLEAR); Color Urine YELLOW (YELLOW); Glucose Urine UA NEGATIVE (NEGATIVE); Ketones Urine NEGATIVE (NEGATIVE); Leukocyte Esterase Urine NEGATIVE (NEGATIVE); Nitrite Urine NEGATIVE (NEGATIVE); Protein Urine TRACE mg/dL (NEG/TRACE); Urobilinogen Urine 0.2 EU/dL (0.2-1.0); pH Urine 5.5 (5.0-9.0)
[2022-11-02 20:57] LABS: Urine Microscopic Indicated NO
--- NOTE | 2022-11-02 21:29 | ED.GENADUL1 ---
HPI - General Adult General Chief complaint: Headache Stated complaint: HEADACHE Time Seen by Provider: 11/02/22 20:21 Source: patient Mode of arrival: walk-in History of Present Illness HPI narrative: patient presents complaining of pain in his neck radiating into his scalp and into his left arm. Ongoing for past 2 weeks. Also has pain turning his head to right or left. No extremity weakness or numbness. No dizziness and doesn't feel off balance when walking. His is also concerned he may have a UTI. Patient denies any urinary symptoms Onset (ago): week(s) Related Data Home Medications Medication Instructions Recorded Confirmed atorvastatin 80 mg tablet 80 mg PO QDAY 10/13/22 10/13/22 donepezil 10 mg tablet 10 mg PO QDAY 10/13/22 10/13/22 insulin glargine 100 unit/mL (3 1 unit subcut QID 10/13/22 10/13/22 mL) subcutaneous pen (Lantus Solostar U-100 Insulin) lisinopril 10 mg tablet 10 mg PO QDAY 10/13/22 10/13/22 metformin 500 mg tablet,extended 500 mg PO QDAY 10/13/22 10/13/22 release 24 hr mirtazapine 15 mg tablet 15 mg PO QDAY 10/13/22 10/13/22 omeprazole 40 mg capsule,delayed 40 mg PO QDAY 10/13/22 10/13/22 release ranolazine 500 mg tablet,extended 500 mg PO Q12H 10/13/22 10/13/22 release,12 hr Previous Rx's Medication Instructions Recorded cephalexin 500 mg capsule 500 mg PO Q12H 7 days #14 caps 10/17/22 ondansetron 4 mg disintegrating 4 mg PO Q4H PRN nausea and 10/17/22 tablet vomiting 3 days #6 tabs Allergies Allergy/AdvReac Type Severity Reaction Status Date / Time No Known Drug Allergies Allergy Verified 10/13/22 11:01 Review of Systems ROS Status of ROS 10 or more systems reviewed and unremarkable except as noted in history and below PFSH PFSH Social History Smoking status: Current every day smoker Exam Constitutional Vital Signs, click to edit/add: Last Vital Signs Temp 97.8 F 11/02/22 19:13 Pulse 65 11/02/22 19:13 Resp 18 11/02/22 19:13 BP 133/60 11/02/22 19:13 Pulse Ox 99 11/02/22 19:13 O2 Del Method Room Air 11/02/22 20:51 Common normals: no apparent distress, oriented x3, no limitations, healthy appearing and alert Eye Common normals: EOMs intact bilaterally and conjunctivae normal Neck & C-Spine Other: limited rotation of head to right or left Respiratory Common normals: normal respiratory effort, no retractions and no use of accessory muscles Cardio Common normals: regular rate, regular rhythm, S1 normal heart sound and S2 normal heart sound GI Common normals: Normal to inspection, nondistended, normoactive bowel sounds present, soft to palpation and non-tender Extremity Common normals: normal to inspection and full ROM Neuro Common normals: oriented x3, CN's II-XII intact bilaterally, moves all extremities, no focal motor deficits and no sensory deficits noted Psych Appearance: grossly normal Course Vital Signs Vital signs: Vital Signs Temperature 97.8 F 11/02/22 19:13 Pulse Rate 65 11/02/22 19:13 Respiratory Rate 18 11/02/22 19:13 Blood Pressure 133/60 11/02/22 19:13 Pulse Oximetry 99 11/02/22 19:13 Oxygen Delivery Method Room Air 11/02/22 19:13 Temperature 97.8 F 11/02/22 19:13 Pulse Rate 65 11/02/22 19:13 Respiratory Rate 18 11/02/22 19:13 Blood Pressure 133/60 11/02/22 19:13 Pulse Oximetry 99 11/02/22 19:13 Oxygen Delivery Method Room Air 11/02/22 20:51 Medical Decision Making [facility] Narrative Medical decision making narrative: patient presents with cervical cephalgia and cervical neuropathy as well as muscular discomfort of his neck when turning to the left or right. CT brain without acute finding. UA performed as his was worried about UTI due to past history of the same and the urine is clean. Patient informed of the diagnosis. Provided medication for pain and is advised to follow up with his family doctor next week for continued treatment Lab Data Labs: Lab Results 11/02/22 Range/Units 20:30 Urine Color Yellow (YELLOW) Urine Clarity Clear (CLEAR) Urine pH 5.5 (5.0-9.0) Ur Specific [place] 1.020 (1.005-1.025) Urine Protein Trace (NEG/TRACE) mg/dL Urine Glucose (UA) Negative (NEGATIVE) mg/dL Urine Ketones Negative (NEGATIVE) mg/dL Urine Occult Blood Negative (NEGATIVE) Urine Nitrite Negative (NEGATIVE) Urine Bilirubin Negative (NEGATIVE) Urine Urobilinogen 0.2 (0.2-1.0) EU/dL Ur Leukocyte Esterase Negative (NEGATIVE) Imaging Data CT scan - head: Attestation: I have reviewed the pertinent imaging results. Radiologist's impression: [email or web address]=#[email or web address]?file=#[email or web address] Find: Highlight all Match case Current View [email or web address]=#[email or web address]=[email or web address],-13,674 Page: of 2 Current View [email or web address]=[email or web address],-13,674 [place] [address] Patient Name: BOB FRY MRN: [id number] date: 1940 Sex: M Assigned Patient Location: ER Current Patient Location: Accession/Order Number: [id number] Exam Date: 11/02/2022 20:27 Report Date: 11/02/2022 21:01 At the request of: CORY HERRING Procedure: CT head/brain wo con EXAM: CT head/brain wo con HISTORY: headache COMPARISON: CT brain 10/13/2022 TECHNIQUE: Axial CT scans through the head were obtained without IV contrast administration. Dose reduction techniques were achieved by using: automated exposure control and/or adjustment of mA and /or kV according to patient size and/or use of iterative reconstruction technique. FINDINGS: There is no evidence of acute intracranial hemorrhage or abnormal extra-axial fluid collection. No mass effect or midline shift is seen. There is no evidence of large acute territorial infarction. There is no hydrocephalus. There are a few tiny lacunar infarcts in bilateral basal ganglia Moderate enlargement of the ventricles and sulci, consistent with age appropriate cerebral atrophy. Patchy areas of low-attenuation are present in supratentorial white matter, likely represents chronic microvascular ischemia. There are severe atherosclerotic calcifications of anterior and posterior circulations. To the limit of CT, the posterior fossa appears unremarkable. No definite acute fracture is identified. Soft tissues are unremarkable. The visualized orbits show no abnormal mass. The visualized paranasal sinuses show no air-fluid level. Mastoid air cells are clear. IMPRESSION: No CT evidence of acute intracranial abnormality. If there is sufficient clinical concern for acute brain parenchymal pathology, consider MRI for further evaluation. 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 Chronic microvascular ischemia, atherosclerosis and involutional changes. Electronically authenticated by: FARIDEH TRINIDAD Date: 11/02/2022 21:01 Discharge Plan Discharge Chief Complaint: Headache Clinical Impression: Headache, Cervical neuropathy Prescriptions / Home Meds: No Action atorvastatin 80 mg tablet 80 mg PO QDAY donepezil 10 mg tablet 10 mg PO QDAY insulin glargine [Lantus Solostar U-100 Insulin] 100 unit/mL (3 mL) insulin pen 1 unit SUBCUT QID lisinopril 10 mg tablet 10 mg PO QDAY metformin 500 mg tablet extended release 24 hr 500 mg PO QDAY mirtazapine 15 mg tablet 15 mg PO QDAY omeprazole 40 mg capsule,delayed release(DR/EC) 40 mg PO QDAY ranolazine 500 mg tablet extended release 12 hr 500 mg PO Q12H ondansetron 4 mg tablet,disintegrating 4 mg PO Q4H PRN (Reason: nausea and vomiting) 3 Days Qty: 6 0RF cephalexin 500 mg capsule 500 mg PO Q12H 7 Days Qty: 14 0RF Instructions: Acute Headache (ED), Neck Pain (ED) Additional Instructions: follow up with your doctor early next week Stand Alone Forms: Portal Instructions Referrals: CECY CLARKE [Primary Care Provider] - 1 week
[2022-11-02] MEDS: TRAMADOL HCL 50 MG TABLET 200 MG PO (22:05)
== END 2022-11-02 22:09 | disposition home or self-care (01) ==
PROVIDERS: Emergency Provider Internal Medicine; PCP Family Medicine
DX: G54.2 Cervical root disorders, not elsewhere classified (principal); R51.9 Headache, unspecified; F17.210 Nicotine dependence, cigarettes, uncomplicated; Z79.899 Other long term (current) drug therapy; Z79.4 Long term (current) use of insulin; Z87.440 Personal history of urinary (tract) infections
CPT/HCPCS: 70450; 81003; 99284

== ENCOUNTER 2022-12-29 06:36 | Emergency (ER) | payer MEDICARE, SELFPAY ==
[2022-12-29] VITALS (29 sets, daily range): BP systolic 149–239; BP diastolic 67–129; PULSE 73–90; RESP 13–23; TEMP 37; O2SAT 89–99; BMI 26.6
--- NOTE | 2022-12-29 06:45 | ECG_ITS ---
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
--- NOTE | 2022-12-29 06:45 | XR_ITS ---
The [address] [address] Patient Name: BOB FRY MRN: [id number] date: 1940 Sex: M Assigned Patient Location: ER Current Patient Location: ED.MAIN Accession/Order Number: [id number] Exam Date: 12/29/2022 06:50 Report Date: 12/29/2022 07:20 At the request of: NASH VIDALES Procedure: XR chest 1V EXAMINATION: XR chest 1V HISTORY: chest pain COMPARISON: No relevant comparison available. TECHNIQUE: AP portable FINDINGS: LUNGS: No significant pulmonary parenchymal abnormalities. VASCULATURE: No increased pulmonary vasculature. PLEURA: No pneumothorax, effusion, or pleural thickening. CARDIAC: No cardiomegaly or cardiac silhouette abnormality. MEDIASTINUM: No visible mass or adenopathy. Median sternotomy wires. BONES: No fracture or visible bone lesion. Cervical fusion hardware OTHER: Negative. XR/XR chest 1V IMPRESSION: No acute cardiopulmonary process Electronically authenticated by: DENNY MCCOY Date: 12/29/2022 07:20
--- NOTE | 2022-12-29 06:47 | PC.NURSE ---
Pt presents to ER for chest pain via EMS Per pt and EMS pt had chest pain on and off all day yesterday Pt states pain got worse in the night so he called EMS this morning Pt was given 324 of aspirin and one round of Nitro en route with an IV started On arrival pt complaining of pain in the center of his sternum Pt has large scar down down the center of his chest Pt states he has not had a heart attack or cardiac history
[2022-12-29 06:59] LABS: Basophils Percent Auto 0.3 % (0.2-2.0); Eosinophils Absolute Auto 0.1 10^3/uL (0.0-0.7); Eosinophils Percent Auto 1.2 % (0.9-7.0); Hematocrit 35.2 % (42.0-54.0); Hemoglobin 12.1 g/dL (14.0-18.0); Immature Granulocytes Abs Auto 0.03 10^3/uL (0.00-0.03); Immature Granulocytes Pct Auto 0.3 % (0.0-0.5); Lymphocytes Absolute Auto 1.1 10^3/uL (1.2-3.8); Lymphocytes Percent Auto 9.2 % (20.5-60.0); Mean Corpuscular HGB Conc 34.4 g/dL (29.9-35.2); Mean Corpuscular Hemoglobin 30.5 pg (25.9-34.0); Mean Corpuscular Volume 88.7 fL (80.0-94.0); Mean Platelet Volume 11.8 fL (9.5-13.5); Monocytes Absolute Auto 0.7 10^3/uL (0.3-0.8); Monocytes Percent Auto 6.1 % (1.7-12.0); Neutrophils Absolute Auto 9.7 10^3/uL (1.4-6.5); Neutrophils Percent Auto 82.9 % (43.0-75.0); Platelet Count 211 10^3/uL (150-450); Red Blood Count 3.97 10^6/uL (4.70-6.10); Red Cell Distribution Width 13.1 % (11.0-15.0); White Blood Count 11.7 10^3/uL (4.0-11.0)
--- NOTE | 2022-12-29 07:13 | ED.CHESTPAI1 ---
HPI - Chest Pain General Chief Complaint: Chest Pain Stated Complaint: CHEST PAIN Time Seen by Provider: 12/29/22 06:57 Source: patient Mode of arrival: ambulance Limitations: no limitations History of Present Illness HPI narrative: yesterday the patient developed pain in the left anterior chest. While he does not recall anything that might have caused the pain, he said that it hurts to press in that area and to take a deep breath. He denied any injury, fall or trauma. No fever or chills. No associated shortness of breath, nausea or vomiting. He came by EMS and was given 324mg aspirin and a single SL Nitro in route. He said that did not improve the chest pain. He denied prior CAD or cardiac cath or stenting. Related Data Home Medications Medication Instructions Recorded Confirmed atorvastatin 80 mg tablet 80 mg PO QDAY 10/13/22 10/13/22 donepezil 10 mg tablet 10 mg PO QDAY 10/13/22 10/13/22 insulin glargine 100 unit/mL (3 1 unit subcut QID 10/13/22 10/13/22 mL) subcutaneous pen (Lantus Solostar U-100 Insulin) lisinopril 10 mg tablet 10 mg PO QDAY 10/13/22 10/13/22 metformin 500 mg tablet,extended 500 mg PO QDAY 10/13/22 10/13/22 release 24 hr mirtazapine 15 mg tablet 15 mg PO QDAY 10/13/22 10/13/22 omeprazole 40 mg capsule,delayed 40 mg PO QDAY 10/13/22 10/13/22 release ranolazine 500 mg tablet,extended 500 mg PO Q12H 10/13/22 10/13/22 release,12 hr Previous Rx's Medication Instructions Recorded cephalexin 500 mg capsule 500 mg PO Q12H 7 days #14 caps 10/17/22 ondansetron 4 mg disintegrating 4 mg PO Q4H PRN nausea and 10/17/22 tablet vomiting 3 days #6 tabs Allergies Allergy/AdvReac Type Severity Reaction Status Date / Time No Known Drug Allergies Allergy Verified 10/13/22 11:01 [facility] Social History Smoking status: Current every day smoker Exam Narrative Exam Narrative: Nurses notes and vital signs reviewed and patient is not hypoxic. afebrile General: Well-appearing and in no apparent distress. Skin: Warm, dry, no pallor noted. No rash. Eye: Pupils are equal, round and EOMI. No scleral icterus. Cardiovascular: Regular Rate and Rhythm without murmur, gallop or rub. Respiratory: No accessory muscle use or respiratory distress. Lungs are clear to auscultation, no wheezing, rales or rhonchi Chest Wall: focal tenderness in the anterior left chest without crepitus or subcutaneous emphysema Back: No midline thoracic or lumbar vertebral tenderness. No CVA tenderness Musculoskeletal: normal ROM, no calf or popliteal tenderness, no lower extremity edema/swelling GI: Abdomen is soft, non-distended. Normal bowel sounds. No tenderness to palpation. No rebound, guarding, or rigidity noted. Neurological: A&O x4. No cranial nerve dysfunction observed. No truncal ataxia. Moves all extremities. Sensation intact. Psychiatric: Cooperative and interactive. Normal mood and affect. Constitutional Vital Signs, click to edit/add: Last Vital Signs Temp 98.6 F 12/29/22 06:33 Pulse 73 12/29/22 08:31 Resp 19 12/29/22 08:31 BP 149/79 H 12/29/22 08:31 Pulse Ox 97 12/29/22 08:31 O2 Del Method Room Air 12/29/22 06:33 Course Vital Signs Vital signs: Vital Signs Temperature 98.6 F 12/29/22 06:33 Pulse Rate 83 12/29/22 06:33 Respiratory Rate 18 12/29/22 06:33 Blood Pressure 167/88 H 12/29/22 06:33 Pulse Oximetry 97 12/29/22 06:33 Oxygen Delivery Method Room Air 12/29/22 06:33 Temperature 98.6 F 12/29/22 06:33 Pulse Rate 73 12/29/22 08:31 Respiratory Rate 19 12/29/22 08:31 Blood Pressure 149/79 H 12/29/22 08:31 Pulse Oximetry 97 12/29/22 08:31 Oxygen Delivery Method Room Air 12/29/22 06:33 MDM - Chest Pain MDM Narrative Medical decision making narrative: Patient was placed on desk monitor and EKG obtained. Blood drawn and sent for evaluation. CXR obtained. He was given IV Zofran to prevent nausea and IV Morphine for the pain. Glucose elevated at 519. He was given insulin to reduce his glucose and a liter of NS IVF. Repeat glucose @ 0843 was 440. Glucose 382 @ 0955. His chest pain resolved after he received IV Moprhine. Negative troponin x 2 sets. BNP elevated but CXR clear and no peripheral sign of heart failure. Patient discharged home with recommendation to continue to take his daily meds as prescribed. PCP follow up recommended. ED return if worse. Lab Data Attestation: I reviewed the patient's lab results. Labs: Lab Results 12/29/22 12/29/22 12/29/22 Range/Units 06:45 08:43 09:24 WBC 11.7 H (4.0-11.0) 10^3/uL RBC 3.97 L (4.70-6.10) 10^6/uL Hgb 12.1 L (14.0-18.0) g/dL Hct 35.2 L (42.0-54.0) % MCV 88.7 (80.0-94.0) fL MCH 30.5 (25.9-34.0) pg MCHC 34.4 (29.9-35.2) g/dL RDW 13.1 (11.0-15.0) % Plt Count 211 (150-450) 10^3/uL MPV 11.8 (9.5-13.5) fL Neut % (Auto) 82.9 H (43.0-75.0) % Lymph % (Auto) 9.2 L (20.5-60.0) % [place] % (Auto) 6.1 (1.7-12.0) % Eos % (Auto) 1.2 (0.9-7.0) % Baso % (Auto) 0.3 (0.2-2.0) % Neut # (Auto) 9.7 H (1.4-6.5) 10^3/uL Lymph # (Auto) 1.1 L (1.2-3.8) 10^3/uL [place] # (Auto) 0.7 (0.3-0.8) 10^3/uL Eos # (Auto) 0.1 (0.0-0.7) 10^3/uL Baso # (Auto) 0.0 (0.0-0.1) 10^3/uL Abs Immat Gran (auto) 0.03 (0.00-0.03) 10^3/uL Imm/Tot Granulo (auto) 0.3 (0.0-0.5) % Sodium 132 L (136-145) mmol/L Potassium 4.4 (3.5-5.1) mmol/L Chloride 96 L (98-107) mmol/L Carbon Dioxide 23.7 (21.0-32.0) mmol/L Anion Gap 16.7 BUN 33.0 H (7.0-18.0) mg/dL Creatinine 1.28 (0.70-1.30) mg/dL Est GFR ( Amer) >60 (>=60) Est GFR (Non-Af Amer) 54 L (>=60) BUN/Creatinine Ratio 25.8 Glucose 519 H* (74-106) mg/dL Calcium 9.6 (8.5-10.1) mg/dL Troponin I High Sens 25.2 31.3 (4.0-76.1) pg/mL NT-Pro-B Natriuret Pep 2253.0 H* (<=1800.0) pg/mL POC Glucose 440 H (74-106) mg/dL Imaging Data Chest x-ray: Radiologist's impression: Patient Name: BOB FRY MRN: [facility]:[id number] date: 1940 Sex: M Assigned Patient Location: ER Current Patient Location: ED.MAIN Accession/Order Number: [id number] Exam Date: 12/29/2022 06:50 Report Date: 12/29/2022 07:20 At the request of: NAHS VIDALES Procedure: XR chest 1V EXAMINATION: XR chest 1V HISTORY: chest pain COMPARISON: No relevant comparison available. TECHNIQUE: AP portable FINDINGS: LUNGS: No significant pulmonary parenchymal abnormalities. VASCULATURE: No increased pulmonary vasculature. PLEURA: No pneumothorax, effusion, or pleural thickening. CARDIAC: No cardiomegaly or cardiac silhouette abnormality. MEDIASTINUM: No visible mass or adenopathy. Median sternotomy wires. BONES: No fracture or visible bone lesion. Cervical fusion hardware OTHER: Negative. IMPRESSION: No acute cardiopulmonary process Electronically authenticated by: DENNY MCCOY Date: 12/29/2022 07:20 ECG Data Interpretation: EKG interpretation: Emergency Department physician interpretation. Normal sinus rhythm at 83bpm. Left axis, normal intervals and no ST segment elevation or depression. Discharge Plan Discharge Chief Complaint: Chest Pain Clinical Impression: Hyperglycemia due to diabetes mellitus, Acute chest wall pain Patient Disposition: Home, Self-Care Time of Disposition Decision: 09:56 Prescriptions / Home Meds: No Action atorvastatin 80 mg tablet 80 mg PO QDAY donepezil 10 mg tablet 10 mg PO QDAY insulin glargine [Lantus Solostar U-100 Insulin] 100 unit/mL (3 mL) insulin pen 1 unit SUBCUT QID lisinopril 10 mg tablet 10 mg PO QDAY metformin 500 mg tablet extended release 24 hr 500 mg PO QDAY mirtazapine 15 mg tablet 15 mg PO QDAY omeprazole 40 mg capsule,delayed release(DR/EC) 40 mg PO QDAY ranolazine 500 mg tablet extended release 12 hr 500 mg PO Q12H ondansetron 4 mg tablet,disintegrating 4 mg PO Q4H PRN (Reason: nausea and vomiting) 3 Days Qty: 6 0RF cephalexin 500 mg capsule 500 mg PO Q12H 7 Days Qty: 14 0RF Instructions: Diabetic Hyperglycemia (ED), Chest Wall Pain (ED) Stand Alone Forms: Portal Instructions Referrals: CECY CLARKE [Primary Care Provider] - 1 week
[2022-12-29 07:16] LABS: Anion Gap 16.7; BUN Creatinine Ratio 25.8; Calcium 9.6 mg/dL (8.5-10.1); Carbon Dioxide 23.7 mmol/L (21.0-32.0); Chloride 96 mmol/L (98-107); Estimated GFR (African America >60 (>=60); Estimated GFR (Non-African Ame 54 (>=60); Potassium 4.4 mmol/L (3.5-5.1); Sodium 132 mmol/L (136-145); Troponin I High Sensitivity 25.2 pg/mL (4.0-76.1)
[2022-12-29 07:20] LABS: Glucose 519 mg/dL (74-106)
[2022-12-29] MEDS: 0.9 % SODIUM CHLORIDE 1,000 ML 1000 ML IV (07:29)
[2022-12-29] MEDS: ONDANSETRON PF 4 MG/2 ML VIAL IV (07:30)
[2022-12-29] MEDS: INSULIN REGULAR 300 UNITS/3 ML 15 UNIT IV (07:31)
[2022-12-29] MEDS: MORPHINE SULFATE 4 MG/ML VIAL IV (07:32)
[2022-12-29 08:44] LABS: Glucometer 440 mg/dL (74-106)
[2022-12-29 09:48] LABS: Troponin I High Sensitivity 31.3 pg/mL (4.0-76.1)
[2022-12-29 10:00] LABS: Glucometer 382 mg/dL (74-106)
== END 2022-12-29 10:04 | disposition home or self-care (01) ==
PROVIDERS: Internal Medicine; Emergency Provider Emergency Medicine; PCP Family Medicine
DX: R07.89 Other chest pain (principal); E11.65 Type 2 diabetes mellitus with hyperglycemia; Z79.899 Other long term (current) drug therapy; Z79.4 Long term (current) use of insulin; Z79.84 Long term (current) use of oral hypoglycemic drugs; F17.210 Nicotine dependence, cigarettes, uncomplicated
CPT/HCPCS: 36415; 71045; 80048; 82948; 83880; 84484; 85025; 93005; 96374; 96375; 99285

== ENCOUNTER 2022-12-29 15:12 | Observation (INO) | payer MEDICARE, SELFPAY ==
[2022-12-29] VITALS (32 sets, daily range): BP systolic 150–249; BP diastolic 80–132; PULSE 75–100; RESP 13–27; TEMP 36.6–36.8; O2SAT 93–100; BMI 25.2; BMI 25.1
--- NOTE | 2022-12-29 15:23 | ECG_ITS ---
The [facility] Test Date: 2022-12-29 Pat Name: BOB FRY Department: Room: - Gender: Male [place]: : 1940 Requested By: Order Number: [id number] Reading MD: MIGUEL BIGGS Measurements Intervals [place] Rate: 93 P: 51 ME: 176 QRS: -65 QRSD: 106 T: 44 QT: 352 QTc: 403 Interpretive Statements 1100 Sinus rhythm 1570 with occasional ventricular premature complexes 7200 Abnormal left axis deviation 8003 Consistent with pulmonary disease 9150 abnormal ECG Compared to ECG 12/29/2022 06:34:11 No significant changes Electronically Signed On 12-31-2022 18:20:05 EDT by MIGUEL BIGGS
--- NOTE | 2022-12-29 15:28 | ED.CHESTPAI1 ---
HPI - Chest Pain General Chief Complaint: Chest Pain Stated Complaint: CHEST PAIN/ SORE THROAT Time Seen by Provider: 12/29/22 15:22 Source: patient Limitations: no limitations History of Present Illness HPI narrative: I saw and evaluated this patient this morning in this ED when was brought in by EMS for the same complaint - chest pain. He had two negative troponins and unremarkable chest XR. His pain did not change with aspirin and Nitro given by EMS in route but completely resolved with ED treatment. He now returns stating that he has return of the pain in his chest. No associated symptoms such as nausea, vomiting or shortness of breath. No cough, fever or chills. No GI or complaints. Related Data Home Medications Medication Instructions Recorded Confirmed atorvastatin 80 mg tablet 80 mg PO DAILY 10/13/22 12/29/22 donepezil 10 mg tablet 10 mg PO DAILY 10/13/22 12/29/22 insulin glargine 100 unit/mL (3 20 unit subcut QAM 10/13/22 12/29/22 mL) subcutaneous pen (Lantus Solostar U-100 Insulin) lisinopril 10 mg tablet 10 mg PO DAILY 10/13/22 12/29/22 metformin 500 mg tablet,extended 500 mg PO QDAY 10/13/22 12/29/22 release 24 hr omeprazole 40 mg capsule,delayed 40 mg PO BID 10/13/22 12/29/22 release ranolazine 500 mg tablet,extended 500 mg PO BID 10/13/22 12/29/22 release,12 hr insulin glargine 100 unit/mL (3 10 unit subcut QPM 12/29/22 12/29/22 mL) subcutaneous pen (Lantus Solostar U-100 Insulin) isosorbide mononitrate 30 mg 30 mg PO DAILY 12/29/22 12/29/22 tablet,extended release 24 hr mirtazapine 30 mg tablet (Remeron) 30 mg PO BEDTIME 12/29/22 12/29/22 Allergies Allergy/AdvReac Type Severity Reaction Status Date / Time No Known Drug Allergies Allergy Verified 10/13/22 11:01 [facility] Social History Smoking status: Former smoker Exam Narrative Exam Narrative: General: Well-appearing and in no apparent distress. Skin: Warm, dry, no pallor noted. No rash. Eye: Pupils are equal, round and EOMI. No scleral icterus. Cardiovascular: Regular Rate and Rhythm without murmur, gallop or rub. Respiratory: No accessory muscle use or respiratory distress. Lungs are clear to auscultation, no wheezing, rales or rhonchi Chest Wall: focal tenderness in the anterior left chest without crepitus or subcutaneous emphysema Back: No midline thoracic or lumbar vertebral tenderness. No CVA tenderness Musculoskeletal: normal ROM, no calf or popliteal tenderness, no lower extremity edema/swelling GI: Abdomen is soft, non-distended. Normal bowel sounds. No tenderness to palpation. No rebound, guarding, or rigidity noted. Neurological: A&O x4. No cranial nerve dysfunction observed. No truncal ataxia. Moves all extremities. Sensation intact. Psychiatric: Cooperative and interactive. Normal mood and affect. Constitutional Vital Signs, click to edit/add: Last Vital Signs Temp 98.2 F 12/29/22 15:18 Pulse 91 H 12/29/22 15:18 Resp 18 12/29/22 15:18 BP 170/80 H 12/29/22 15:18 Pulse Ox 98 12/29/22 15:18 Course Vital Signs Vital signs: Vital Signs Temperature 98.2 F 12/29/22 15:18 Pulse Rate 91 H 12/29/22 15:18 Respiratory Rate 18 12/29/22 15:18 Blood Pressure 170/80 H 12/29/22 15:18 Pulse Oximetry 98 12/29/22 15:18 Temperature 98.2 F 12/29/22 15:18 Pulse Rate 91 H 12/29/22 15:18 Respiratory Rate 18 12/29/22 15:18 Blood Pressure 170/80 H 12/29/22 15:18 Pulse Oximetry 98 12/29/22 15:18 MDM - Chest Pain MDM Narrative Medical decision making narrative: Patient was placed on cafeteria monitor and EKG obtained. Blood drawn and sent for evaluation. He already had CXR this morning and does not need another. .Troponin once again negative. Call placed to Dr Denson to discuss obs admission for recurrent chest pain. Dr Denson agrees to admit the patient to his service. Patient and spouse informed of recommendation to be admitted to TBS, SDU, OBS. Lab Data Attestation: I reviewed the patient's lab results. Labs: Lab Results 12/29/22 Range/Units 15:27 WBC 12.7 H (4.0-11.0) 10^3/uL RBC 4.08 L (4.70-6.10) 10^6/uL Hgb 12.4 L (14.0-18.0) g/dL Hct 36.6 L (42.0-54.0) % MCV 89.7 (80.0-94.0) fL MCH 30.4 (25.9-34.0) pg MCHC 33.9 (29.9-35.2) g/dL RDW 13.5 (11.0-15.0) % Plt Count 251 (150-450) 10^3/uL MPV 11.3 (9.5-13.5) fL Neut % (Auto) 75.9 H (43.0-75.0) % Lymph % (Auto) 15.8 L (20.5-60.0) % [place] % (Auto) 6.8 (1.7-12.0) % Eos % (Auto) 0.8 L (0.9-7.0) % Baso % (Auto) 0.3 (0.2-2.0) % Neut # (Auto) 9.7 H (1.4-6.5) 10^3/uL Lymph # (Auto) 2.0 (1.2-3.8) 10^3/uL [place] # (Auto) 0.9 H (0.3-0.8) 10^3/uL Eos # (Auto) 0.1 (0.0-0.7) 10^3/uL Baso # (Auto) 0.0 (0.0-0.1) 10^3/uL Abs Immat Gran (auto) 0.05 H (0.00-0.03) 10^3/uL Imm/Tot Granulo (auto) 0.4 (0.0-0.5) % Sodium 131 L (136-145) mmol/L Potassium 3.9 (3.5-5.1) mmol/L Chloride 98 (98-107) mmol/L Carbon Dioxide 23.2 (21.0-32.0) mmol/L Anion Gap 13.7 BUN 36.0 H (7.0-18.0) mg/dL Creatinine 1.40 H (0.70-1.30) mg/dL Est GFR ( Amer) 59 L (>=60) Est GFR (Non-Af Amer) 48 L (>=60) BUN/Creatinine Ratio 25.7 Glucose 426 H (74-106) mg/dL Calcium 9.2 (8.5-10.1) mg/dL Troponin I High Sens 25.5 (4.0-76.1) pg/mL ECG Data Interpretation: EKG interpretation: Emergency Department physician interpretation. Normal sinus rhythm at 93bpm. Left axis. no ST segment elevation or depression. Heart Score History: Moderatly Suspicious ECG: NS Repolarization Age: >65 years Risk Factors: >3 Risk Factors/ HX of CAD:2 Troponin: <Normal Limit Total Heart Score Recommendations & Risks:: 6 Discharge Plan Discharge Chief Complaint: Chest Pain Clinical Impression: Chest pain Patient Disposition: Admitted as Observation Time of Disposition Decision: 16:35 Prescriptions / Home Meds: No Action atorvastatin 80 mg tablet 80 mg PO DAILY donepezil 10 mg tablet 10 mg PO DAILY insulin glargine [Lantus Solostar U-100 Insulin] 100 unit/mL (3 mL) insulin pen 20 unit SUBCUT QAM lisinopril 10 mg tablet 10 mg PO DAILY metformin 500 mg tablet extended release 24 hr 500 mg PO QDAY omeprazole 40 mg capsule,delayed release(DR/EC) 40 mg PO BID ranolazine 500 mg tablet extended release 12 hr 500 mg PO BID insulin glargine [Lantus Solostar U-100 Insulin] 100 unit/mL (3 mL) insulin pen 10 unit subcut QPM mirtazapine [Remeron] 30 mg tablet 30 mg PO BEDTIME isosorbide mononitrate 30 mg tablet extended release 24 hr 30 mg PO DAILY Additional Instructions: dr denson, JOYCEU, obs Referrals: CECY CLARKE [Primary Care Provider] - 1 week
[2022-12-29 15:34] LABS: Basophils Percent Auto 0.3 % (0.2-2.0); Eosinophils Absolute Auto 0.1 10^3/uL (0.0-0.7); Eosinophils Percent Auto 0.8 % (0.9-7.0); Hematocrit 36.6 % (42.0-54.0); Hemoglobin 12.4 g/dL (14.0-18.0); Immature Granulocytes Abs Auto 0.05 10^3/uL (0.00-0.03); Immature Granulocytes Pct Auto 0.4 % (0.0-0.5); Lymphocytes Percent Auto 15.8 % (20.5-60.0); Mean Corpuscular HGB Conc 33.9 g/dL (29.9-35.2); Mean Corpuscular Hemoglobin 30.4 pg (25.9-34.0); Mean Corpuscular Volume 89.7 fL (80.0-94.0); Mean Platelet Volume 11.3 fL (9.5-13.5); Monocytes Absolute Auto 0.9 10^3/uL (0.3-0.8); Monocytes Percent Auto 6.8 % (1.7-12.0); Neutrophils Absolute Auto 9.7 10^3/uL (1.4-6.5); Neutrophils Percent Auto 75.9 % (43.0-75.0); Platelet Count 251 10^3/uL (150-450); Red Blood Count 4.08 10^6/uL (4.70-6.10); Red Cell Distribution Width 13.5 % (11.0-15.0); White Blood Count 12.7 10^3/uL (4.0-11.0)
[2022-12-29] MEDS: ONDANSETRON PF 4 MG/2 ML VIAL IV (15:46)
[2022-12-29] MEDS: MORPHINE SULFATE 2 MG/ML SYRINGE IV (15:46)
[2022-12-29 15:52] LABS: Anion Gap 13.7; BUN Creatinine Ratio 25.7; Calcium 9.2 mg/dL (8.5-10.1); Carbon Dioxide 23.2 mmol/L (21.0-32.0); Chloride 98 mmol/L (98-107); Estimated GFR (African America 59 (>=60); Estimated GFR (Non-African Ame 48 (>=60); Glucose 426 mg/dL (74-106); Potassium 3.9 mmol/L (3.5-5.1); Sodium 131 mmol/L (136-145); Troponin I High Sensitivity 25.5 pg/mL (4.0-76.1)
[2022-12-29] MEDS: ISOSORBIDE MONONITRATE 30 MG TAB.ER.24H PO (18:18)
[2022-12-29] MEDS: LISINOPRIL 10 MG TABLET PO (18:18)
[2022-12-29] MEDS: HYDRALAZINE HCL 20 MG/ML VIAL 10 MG IVP (18:18)
[2022-12-29] MEDS: ENOXAPARIN SODIUM 40 MG/0.4 ML SYRINGE SUBQ (18:27)
[2022-12-29 20:51] LABS: Glucometer 444 mg/dL (74-106)
[2022-12-29] MEDS: MIRTAZAPINE 15 MG TABLET 30 MG PO (21:15)
[2022-12-29] MEDS: OMEPRAZOLE 40 MG CAPSULE.DR PO (21:15)
[2022-12-29] MEDS: RANOLAZINE 500 MG TAB.ER.12H PO (21:15)
[2022-12-29] MEDS: INSULIN ASPART 300 UNIT/3 ML PEN SUBQ (21:16)
[2022-12-29] MEDS: INSULIN DETEMIR 300 UNIT/3 ML INSULN.PEN 10 UNIT SUBQ (21:16)
[2022-12-30] VITALS (11 sets, daily range): BP systolic 100–133; BP diastolic 48–78; PULSE 61–98; RESP 14–18; TEMP 36.4–36.6; O2SAT 94–98
[2022-12-30 04:55] LABS: Glucometer 318 mg/dL (74-106)
[2022-12-30 06:01] LABS: Basophils Percent Auto 0.3 % (0.2-2.0); Eosinophils Absolute Auto 0.1 10^3/uL (0.0-0.7); Eosinophils Percent Auto 0.5 % (0.9-7.0); Hematocrit 29.8 % (42.0-54.0); Hemoglobin 9.8 g/dL (14.0-18.0); Immature Granulocytes Abs Auto 0.03 10^3/uL (0.00-0.03); Immature Granulocytes Pct Auto 0.3 % (0.0-0.5); Lymphocytes Absolute Auto 1.7 10^3/uL (1.2-3.8); Lymphocytes Percent Auto 15.7 % (20.5-60.0); Mean Corpuscular HGB Conc 32.9 g/dL (29.9-35.2); Mean Corpuscular Hemoglobin 29.8 pg (25.9-34.0); Mean Corpuscular Volume 90.6 fL (80.0-94.0); Mean Platelet Volume 11.7 fL (9.5-13.5); Monocytes Absolute Auto 0.8 10^3/uL (0.3-0.8); Monocytes Percent Auto 7.3 % (1.7-12.0); Neutrophils Absolute Auto 8.3 10^3/uL (1.4-6.5); Neutrophils Percent Auto 75.9 % (43.0-75.0); Platelet Count 204 10^3/uL (150-450); Red Blood Count 3.29 10^6/uL (4.70-6.10); Red Cell Distribution Width 13.7 % (11.0-15.0)
[2022-12-30 06:47] LABS: Alanine Aminotransferase 24 U/L (16-63); Albumin Globulin Ratio 1.1; Alkaline Phosphatase 61 U/L (46-116); Anion Gap 11.8; Aspartate Amino Transferase 9 U/L (15-37); BUN Creatinine Ratio 28.8; Bilirubin Total 0.5 mg/dL (0.2-1.0); Calcium 8.7 mg/dL (8.5-10.1); Carbon Dioxide 24.2 mmol/L (21.0-32.0); Chloride 102 mmol/L (98-107); Estimated GFR (African America 53 (>=60); Estimated GFR (Non-African Ame 44 (>=60); Globulin 2.8 g/dL; Glucose 323 mg/dL (74-106); Sodium 134 mmol/L (136-145); Total Protein 5.8 g/dL (6.4-8.2)
[2022-12-30 08:02] LABS: Troponin I High Sensitivity 24.8 pg/mL (4.0-76.1)
[2022-12-30] MEDS: INSULIN ASPART 300 UNIT/3 ML PEN SUBQ (08:27)
[2022-12-30] MEDS: ISOSORBIDE MONONITRATE 30 MG TAB.ER.24H PO (08:28)
[2022-12-30] MEDS: INSULIN DETEMIR 300 UNIT/3 ML INSULN.PEN 20 UNIT SUBQ (08:29)
[2022-12-30] MEDS: OMEPRAZOLE 40 MG CAPSULE.DR PO (08:29)
[2022-12-30] MEDS: DONEPEZIL HCL 10 MG TABLET PO (08:29)
[2022-12-30] MEDS: RANOLAZINE 500 MG TAB.ER.12H PO (08:29)
[2022-12-30] MEDS: ATORVASTATIN CALCIUM 40 MG TABLET 80 MG PO (08:29)
--- NOTE | 2022-12-30 08:38 | PC.NURSE ---
Patient resting with eyes closed upon entry to room. Patient awoken and vital signs taken, patient agreeable and alert. Oriented to self and date of . Patient denies the need for toileting, and denies wanting to order breakfast. Patient requested further rest. Patient educated on medications and patient agreed to taking medication. Patient asked if any further needs and patient promptly denies any. Call light left in reach and patient educated to proper use of call light.
[2022-12-30 11:26] LABS: Glucometer 183 mg/dL (74-106)
--- NOTE | 2022-12-30 13:58 | P.HP_ITS ---
H&P: HPI History of Present Illness Chief complaint: CHEST pain Narrative: 82 y/o male to ER with chest pain. Pain off and on for several days. Developed increased pain in am and to ER. CE negative and glucose 519. Discharged home. Continued to have pain and worsened. Returned to ER and CE remains negative. Admitted for observation. Feels well since admission. No further pain in chest. No SOB or palpitations. Review of Systems ROS Constitutional Denies: fever, chills or night sweats Cardiovascular Reports: chest pain; Denies: palpitations, edema or lightheade dness Respiratory Denies: shortness of breath, cough or wheezing Gastrointestinal Denies: abdominal pain, nausea, vomiting or diarrhea Genitourinary Denies: painful urination PFSH [facility] Medical History (Updated 12/30/22 @ 09:44 by Hesham Zheng MD) Acute chest wall pain ?R07.89 - Other chest pain (ICD-10) Acute UTI ?N39.0 - Urinary tract infection, site not specified (ICD-10) Cervical neuropathy ?G54.2 - Cervical root disorders, not elsewhere classified (ICD-10) CHI (closed head injury) ?S09.90XA - Unspecified injury of head, initial encounter (ICD-10) Constipation ?K59.00 - Constipation, unspecified (ICD-10) Dehydration ?E86.0 - Dehydration (ICD-10) Diabetes ?E11.9 - Type 2 diabetes mellitus without complications (ICD-10) Gastritis ?K29.70 - Gastritis, unspecified, without bleeding (ICD-10) Headache ?R51.9 - Headache, unspecified (ICD-10) Leg pain, right ?M79.604 - Pain in right leg (ICD-10) Nausea & vomiting ?R11.2 - Nausea with vomiting, unspecified (ICD-10) Near syncope ?R55 - Syncope and collapse (ICD-10) Neck arthralgia ?M54.2 - Cervicalgia (ICD-10) Surgical History (Updated 12/29/22 @ 17:59 by Luz Elena Jackson) History of cholecystectomy ?Z90.49 - Acquired absence of other specified parts of digestive tract (ICD- 10) 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 (ICD-10) Social History Smoking status: Former smoker Meds Home Medications and Allergies Home Medications Medication Instructions Recorded Confirmed Type atorvastatin 80 mg tablet 80 mg PO DAILY 10/13/22 12/29/22 History donepezil 10 mg tablet 10 mg PO DAILY 10/13/22 12/29/22 History insulin glargine 100 unit/mL (3 20 unit subcut QAM 10/13/22 12/29/22 History mL) subcutaneous pen (Lantus Solostar U-100 Insulin) lisinopril 10 mg tablet 10 mg PO DAILY 10/13/22 12/29/22 History metformin 500 mg tablet,extended 500 mg PO QDAY 10/13/22 12/29/22 History release 24 hr omeprazole 40 mg capsule,delayed 40 mg PO BID 10/13/22 12/29/22 History release ranolazine 500 mg tablet,extended 500 mg PO BID 10/13/22 12/29/22 History release,12 hr insulin glargine 100 unit/mL (3 10 unit subcut QPM 12/29/22 12/29/22 History mL) subcutaneous pen (Lantus Solostar U-100 Insulin) isosorbide mononitrate 30 mg 30 mg PO DAILY 12/29/22 12/29/22 History tablet,extended release 24 hr mirtazapine 30 mg tablet (Remeron) 30 mg PO BEDTIME 12/29/22 12/29/22 History Allergies Allergy/AdvReac Type Severity Reaction Status Date / Time No Known Drug Allergies Allergy Verified 10/13/22 11:01 Exam Constitutional Vital Signs, click to edit/add: Last Vital Signs Temp 97.5 F L 12/30/22 05:32 Pulse 61 12/30/22 12:00 Resp 17 12/30/22 12:00 BP 107/48 L 12/30/22 08:30 Pulse Ox 95 12/30/22 12:05 O2 Del Method Room Air 12/30/22 12:05 Documenting provider has reviewed patient's vital signs: yes Common normals: no apparent distress, oriented x3 and alert HENMT Common normals: normocephalic Eye Common normals: PERRL and EOMs intact bilaterally Respiratory Common normals: normal respiratory effort and clear to auscultation bilaterally Cardio Common normals: regular rate, regular rhythm, no gallops, no clicks and no rub GI Common normals: Normal to inspection, nondistended, normoactive bowel sounds present and non-tender Extremity Common normals: no pedal edema Results Labs Labs: Short CBC 12/29/22 12/30/22 Range/Units 15:27 05:37 WBC 12.7 H 11.0 (4.0-11.0) 10^3/uL Hgb 12.4 L 9.8 L (14.0-18.0) g/dL Hct 36.6 L 29.8 L (42.0-54.0) % Plt Count 251 204 (150-450) 10^3/uL BMP 12/29/22 12/30/22 15:27 05:37 Sodium 131 L 134 L Potassium 3.9 4.0 Chloride 98 102 Carbon Dioxide 23.2 24.2 BUN 36.0 H 44.0 H Creatinine 1.40 H 1.53 H Glucose 426 H 323 H Calcium 9.2 8.7 Liver Function 12/30/22 Range/Units 05:37 Total Bilirubin 0.5 (0.2-1.0) mg/dL AST 9 L (15-37) U/L ALT 24 (16-63) U/L Alkaline Phosphatase 61 (46-116) U/L Albumin 3.0 L (3.4-5.0) g/dL ECG Attestation: ?I have reviewed the pertinent ECG results. Assessment and Plan Assessment and Plan (1) Chest pain: (2) Coronary artery disease: (3) Hyperglycemia due to diabetes mellitus: (4) Benign essential hypertension: (5) Alzheimer's dementia: (6) Dyslipidemia: Plan Patient not having ACS. EKG normal and CE negative. No further pain. Discharge home. Resume home medication without change. F/u with PCP in 1-2 weeks and may need outpatient stress test.
--- NOTE | 2023-01-02 15:02 | CM.DCFOLLOWU ---
2nd attempt- No answer
== END 2022-12-30 13:57 | disposition home or self-care (01) ==
LOC: ER 16:55 → ICU 17:35
PROVIDERS: Admitting Provider Family Medicine; Emergency Provider Emergency Medicine; PCP Family Medicine; Visit Provider Internal Medicine
DX: R07.9 Chest pain, unspecified (principal); I25.10 Atherosclerotic heart disease of native coronary artery without angina pectoris; E11.65 Type 2 diabetes mellitus with hyperglycemia; I10 Essential (primary) hypertension; E78.5 Hyperlipidemia, unspecified; G30.9 Alzheimer's disease, unspecified; F02.80 Dementia in other diseases classified elsewhere, unspecified severity, without behavioral disturbance, psychotic disturbance, mood disturbance, and anxiety; Z79.4 Long term (current) use of insulin; Z79.82 Long term (current) use of aspirin; Z79.899 Other long term (current) drug therapy; Z87.891 Personal history of nicotine dependence; Z95.1 Presence of aortocoronary bypass graft; Z90.49 Acquired absence of other specified parts of digestive tract; Z87.440 Personal history of urinary (tract) infections; R07.89 Other chest pain; Z79.84 Long term (current) use of oral hypoglycemic drugs
CPT/HCPCS: 36415; 71045; 80048; 80053; 82948; 83880; 84484; 85025; 93005; 94761; 96372; 96374; 96375; 99285; G0378

== ENCOUNTER 2023-01-19 15:30 | Emergency (ER) | payer MEDICARE, SELFPAY ==
[2023-01-19 15:26] VITALS: BP 151/63; PULSE 59; RESP 20; O2SAT 100; BMI 25.8
--- NOTE | 2023-01-19 15:35 | CT_ITS ---
The [address] [address] Patient Name: BOB FRY MRN: [id number] date: 1940 Sex: M Assigned Patient Location: ER Current Patient Location: [facility] Accession/Order Number: [id number] Exam Date: 01/19/2023 15:44 Report Date: 01/19/2023 16:21 At the request of: STEVEN SEO Procedure: CT head/brain wo con EXAM: CT head/brain wo con HISTORY: chi on thinners COMPARISON: CT brain 11/02/2022 TECHNIQUE: Axial CT scans through the head were obtained without IV contrast administration. Dose reduction techniques were achieved by using: automated exposure control and/or adjustment of mA and /or kV according to patient size and/or use of iterative reconstruction technique. FINDINGS: There is no evidence of acute intracranial hemorrhage or abnormal extra-axial fluid collection. No mass effect or midline shift is seen. There is no evidence of large acute territorial infarction. There is no hydrocephalus. There are small remote lacunar infarcts in bilateral caudate head and left caudate body. Moderate enlargement of the ventricles and sulci, consistent with age appropriate cerebral atrophy. Patchy areas of low-attenuation are present in supratentorial white matter, likely represents chronic microvascular ischemia. There are atherosclerotic calcifications of anterior and posterior circulations. To the limit of CT, the posterior fossa appears unremarkable. No definite acute fracture is identified. Soft tissues are unremarkable. The visualized orbits show no abnormal mass. The visualized paranasal sinuses show no air-fluid level. Mastoid air cells are clear. CT/CT head/brain wo con IMPRESSION: No CT evidence of acute intracranial abnormality, specifically no intracranial hemorrhage. 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 Chronic microvascular ischemia and involutional changes. Electronically authenticated by: FARIDEH WELSHU Date: 01/19/2023 16:21
--- NOTE | 2023-01-19 16:16 | ED.GENADUL1 ---
HPI - General Adult General Chief complaint: Skin/Abscess/Foreign Body Stated complaint: fall Time Seen by Provider: 01/19/23 15:36 Source: other Source information: EMS Mode of arrival: ambulance Limitations: no limitations History of Present Illness HPI narrative: Patient is a 82-year-old male who is presenting with a unwitnessed fall and closed head injury. Patient is currently staying at a nursing facility. Patient was found face down next to the bed. Patient arrived by [facility]. Patient is on blood thinners. Patient is alert and oriented ?3. Patient has no cervical collar in place when he arrived by EMS. This is a unwitnessed fall. Patient currently has no headache, neck pain. No chest pain or shortness of breath. Patient is a small skin tear to his left elbow. When patient arrived to room 7, I saw the patient while he was still on EMS gurney. Patient is alert and oriented ?3, patient clinically has no midline or paracervical tenderness palpation. Patient has full range of motion of cervical spinal no difficulty. Patient was recommended by myself to be placed in a cervical collar secondary to ATLS and trauma Lines. Patient refused cervical collar, stating he had no neck pain. Cervical collar was not placed per patient request. Patient says his tetanus shot is up-to-date. Patient has no other acute complaints at this time. . All systems are negative except as noted/marked. All systems reviewed and otherwise negative. . Nurses note and vital signs reviewed and patient is not hypoxic. General: The patient appears well and in no apparent distress. Patient is resting comfortably on cart. Patient is not toxic, lethargic, or listless Skin: Warm, dry, no pallor noted. There is no rash noted. No petechiae, purpura. Patient has a 2 cm jagged skin tear to his left elbow. This will be cleaned, benzoin and Steri-Strips will be placed. Head: Normocephalic, atraumatic, No cervical collar in place, please see HPI. Patient has no hematoma, abrasion, laceration. Full range of motion of cervical spinal no difficulty. Eye: Normal conjunctiva, no drainage, EOMI. PERRL Ears, Nose, Mouth, and Throat: oral mucosa is moist. Nares patent. Mouth without vesicles. Cardiovascular: Regular Rate and Rhythm, no murmur, gallop, rub Respiratory: Patient is in no distress, no accessory muscle use, lungs are clear to auscultation, no wheezing, rales or rhonchi Back: non-tender, no CVA tenderness bilaterally to percussion. No CT LS midline pain GI: soft, no tenderness to palpation, no masses appreciated. No rebound, guarding, or rigidity noted. No flank pain bilateral, No distention Musculoskeletal: Patient has full range of motion of all of the extremities, no motor, sensory, or focal neurological deficits Neurological: A&O x3, normal speech Psychiatric: Cooperative Related Data Home Medications Medication Instructions Recorded Confirmed atorvastatin 80 mg tablet 80 mg PO DAILY 10/13/22 12/29/22 donepezil 10 mg tablet 10 mg PO DAILY 10/13/22 12/29/22 insulin glargine 100 unit/mL (3 20 unit subcut QAM 10/13/22 12/29/22 mL) subcutaneous pen (Lantus Solostar U-100 Insulin) lisinopril 10 mg tablet 10 mg PO DAILY 10/13/22 12/29/22 metformin 500 mg tablet,extended 500 mg PO QDAY 10/13/22 12/29/22 release 24 hr omeprazole 40 mg capsule,delayed 40 mg PO BID 10/13/22 12/29/22 release ranolazine 500 mg tablet,extended 500 mg PO BID 10/13/22 12/29/22 release,12 hr insulin glargine 100 unit/mL (3 10 unit subcut QPM 12/29/22 12/29/22 mL) subcutaneous pen (Lantus Solostar U-100 Insulin) isosorbide mononitrate 30 mg 30 mg PO DAILY 12/29/22 12/29/22 tablet,extended release 24 hr mirtazapine 30 mg tablet (Remeron) 30 mg PO BEDTIME 12/29/22 12/29/22 Allergies Allergy/AdvReac Type Severity Reaction Status Date / Time No Known Drug Allergies Allergy Verified 10/13/22 11:01 [facility] Medical History (Updated 01/19/23 @ 16:43 by Abiodun Gasca MD) Acute chest wall pain ?R07.89 - Other chest pain (ICD-10) Acute UTI ?N39.0 - Urinary tract infection, site not specified (ICD-10) Cervical neuropathy ?G54.2 - Cervical root disorders, not elsewhere classified (ICD-10) CHI (closed head injury) ?S09.90XA - Unspecified injury of head, initial encounter (ICD-10) Constipation ?K59.00 - Constipation, unspecified (ICD-10) Dehydration ?E86.0 - Dehydration (ICD-10) Diabetes ?E11.9 - Type 2 diabetes mellitus without complications (ICD-10) Gastritis ?K29.70 - Gastritis, unspecified, without bleeding (ICD-10) Headache ?R51.9 - Headache, unspecified (ICD-10) Leg pain, right ?M79.604 - Pain in right leg (ICD-10) Nausea & vomiting ?R11.2 - Nausea with vomiting, unspecified (ICD-10) Near syncope ?R55 - Syncope and collapse (ICD-10) Neck arthralgia ?M54.2 - Cervicalgia (ICD-10) Surgical History (Updated 12/29/22 @ 17:59 by Luz Elena Jackson) History of cholecystectomy ?Z90.49 - Acquired absence of other specified parts of digestive tract (ICD-10) 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 (ICD-10) Social History Smoking status: Former smoker Exam Constitutional Vital Signs, click to edit/add: Last Vital Signs Pulse 59 L 01/19/23 15:26 Resp 20 01/19/23 15:26 BP 151/63 H 01/19/23 15:26 Pulse Ox 100 01/19/23 15:26 O2 Del Method Nasal Cannula 01/19/23 15:26 O2 Flow Rate 2 01/19/23 15:26 Course Vital Signs Vital signs: Vital Signs Pulse Rate 59 L 01/19/23 15:26 Respiratory Rate 20 01/19/23 15:26 Blood Pressure 151/63 H 01/19/23 15:26 Pulse Oximetry 100 01/19/23 15:26 Oxygen Delivery Method Nasal Cannula 01/19/23 15:26 Oxygen Delivery Flow Rate 2 01/19/23 15:26 Pulse Rate 59 L 01/19/23 15:26 Respiratory Rate 20 01/19/23 15:26 Blood Pressure 151/63 H 01/19/23 15:26 Pulse Oximetry 100 01/19/23 15:26 Oxygen Delivery Method Nasal Cannula 01/19/23 15:26 Oxygen Delivery Flow Rate 2 01/19/23 15:26 Medical Decision Making MDM Narrative Medical decision making narrative: CT of the brain shows no acute findings. Patient had no other acute injury. Patient did not want to wear cervical collar when he arrived. Patient had a skin tear that was dressed by nursing staff. Education on skin tears/Steri-Strips was done at bedside and on discharge paperwork. Patient looks well. has been at bedside. Discharge Plan Discharge Chief Complaint: Skin/Abscess/Foreign Body Clinical Impression: Head injury, Skin tear of left elbow without complication Patient Disposition: Home, Self-Care Condition: Fair Prescriptions / Home Meds: No Action atorvastatin 80 mg tablet 80 mg PO DAILY donepezil 10 mg tablet 10 mg PO DAILY insulin glargine [Lantus Solostar U-100 Insulin] 100 unit/mL (3 mL) insulin pen 20 unit SUBCUT QAM lisinopril 10 mg tablet 10 mg PO DAILY metformin 500 mg tablet extended release 24 hr 500 mg PO QDAY omeprazole 40 mg capsule,delayed release(DR/EC) 40 mg PO BID ranolazine 500 mg tablet extended release 12 hr 500 mg PO BID insulin glargine [Lantus Solostar U-100 Insulin] 100 unit/mL (3 mL) insulin pen 10 unit subcut QPM mirtazapine [Remeron] 30 mg tablet 30 mg PO BEDTIME isosorbide mononitrate 30 mg tablet extended release 24 hr 30 mg PO DAILY Instructions: Head Injury (ED) Additional Instructions: Use Tylenol if needed for headache. Head injury instructions were discussed at bedside and on discharge paper. Follow-up with PCP of residential. Stand Alone Forms: Portal Instructions Referrals: DAVIDE LAO DO [Primary Care Provider] - 1 week
[2023-01-19 18:03] VITALS: BP 167/82; PULSE 67; RESP 20; O2SAT 98
== END 2023-01-19 18:07 | disposition home or self-care (01) ==
PROVIDERS: Emergency Provider Emergency Medicine; PCP Family Medicine
DX: S51.012A Laceration without foreign body of left elbow, initial encounter (principal); S09.8XXA Other specified injuries of head, initial encounter; W19.XXXA Unspecified fall, initial encounter; E11.9 Type 2 diabetes mellitus without complications; Z90.49 Acquired absence of other specified parts of digestive tract; Z95.1 Presence of aortocoronary bypass graft; Z87.891 Personal history of nicotine dependence; Z79.899 Other long term (current) drug therapy; Z79.4 Long term (current) use of insulin; Z87.440 Personal history of urinary (tract) infections
CPT/HCPCS: 70450; 99284